=== PATIENT | female | born 1940 | race Caucasian/White ===

== ENCOUNTER 2016-11-14 11:50 | Inpatient (IN) | payer MEDICARE, OTHER ==
[2016-11-14] MEDS ORDERED: ONDANSETRON 4 MG/2 ML VIAL IVP PRN (14:57)
[2016-11-14] MEDS ORDERED: traMADol 50 MG TAB PO PRN (14:57)
[2016-11-14] MEDS ORDERED: MELATONIN 3 MG TABLET PO PRN (14:57)
[2016-11-14] MEDS ORDERED: HYDROcodone/APAP 5-325MG 1 EACH TAB PO PRN (14:57)
[2016-11-14] MEDS ORDERED: ACETAMINOPHEN TAB 325 MG TAB PO PRN (14:57)
[2016-11-14] MEDS ORDERED: NALOXONE 0.4 MG/ML 1 ML VIAL IV PRN (14:57)
--- NOTE | 2016-11-14 15:46 | XR ---
EXAMINATION TYPE: XR chest 2V DATE OF EXAM: 11/14/2016 3:42 PM COMPARISON: 04/30/2014 HISTORY: 76-year-old female shortness of breath, rule out pneumonia TECHNIQUE: Frontal and lateral views FINDINGS: Limited exam due to significant kyphotic positioning and low lung volumes. Heart is mildly enlarged. Mild elongation of the thoracic aorta. Diffuse interstitial prominence. Calcified granuloma at the ri ght base. Hazy density at the left base likely atelectasis. No pleural effusion seen on the lateral v iew. IMPRESSION: 1. Cardiomegaly. 2. Hypoventilatory changes and kyphotic positioning limiting the exam. Chronic changes without defini te acute process.
[2016-11-14 15:59] LABS: Basophils % (A) 0 %; CH 29.9; CHCM 31.2; Eosinophils # (A) 0.1 k/uL (0-0.7); Eosinophils % (A) 2 %; HDW 2.43; HGB 11.4 gm/dL (11.4-16.0); Hypochromasia Slight; Luc # (Auto) 0.19; Luc % (Auto) 3; Lymphocytes # (A) 1.2 k/uL (1.0-4.8); Lymphocytes % (A) 17 %; MCH 30.5 pg (25.0-35.0); MCHC 31.7 g/dL (31.0-37.0); MCV 96.4 fL (80.0-100.0); Mean Platelet Volume 8.3; Monocytes # (A) 0.6 k/uL (0-1.0); Monocytes % (A) 8 %; Neutrophils # (A) 5.2 k/uL (1.3-7.7); Neutrophils % (A) 70 %; RBC 3.74 m/uL (3.80-5.40); RDW 13.3 % (11.5-15.5); WBC 7.4 k/uL (3.8-10.6); WBC (Perox) 8.01
[2016-11-14 16:08] LABS: Anion Gap 6 mmol/L; Blood Urea Nitrogen 21 mg/dL (7-17); Calcium 9.4 mg/dL (8.4-10.2); Carbon Dioxide 24 mmol/L (22-30); Chloride 109 mmol/L (98-107); Glucose 84 mg/dL (74-99); Non-African American GFR(MDRD) >60 (>60 ml/min/1.73 sqM); Potassium 4.6 mmol/L (3.5-5.1); Sodium 139 mmol/L (137-145)
[2016-11-14 16:27] VITALS: BMI 21.4
[2016-11-14] MEDS: SODIUM CHLORIDE 0.9% 1,000 ML IV SCH (16:32)
--- NOTE | 2016-11-14 17:45 | HP ---
DATE OF ADMISSION: Patient is a transfer from [facility]. We are still obtaining her medical history and other information at this point of time. Patient apparently was having fevers at the facility and patient has decubitus ulcer which appears to be stage IV decubitus ulcer. Possibility of this being a source of infection. I am unable to obtain any history from the patient. Will obtain UA, urine cultures. Chest x-ray did not show any pneumonic process and apparently these were obtained at the other hospital which did not show any significant abnormality. Patient does not have any leukocytosis. Patient has a decubitus ulcer looking infected with foul-smelling discharge, which will be cultured and packed with surrounding cellulitis. I am consulting Infectious Disease and will leave the decision of evaluation for osteomyelitis to them. Patient will have wound cultures obtained. Blood cultures were obtained at the other hospital. I will also obtain another repeat set of blood cultures here. I will consult Infectious Disease. Patient is in chronically contracted state, etiology of which is unknown. As per previous dictations from Dr. Ba, it looks like patient had dementia. I am unsure of her contracted state. Patient is nonverbal. Review of systems unable to obtain. PAST MEDICAL HISTORY: Depression, hypertension. HOME MEDICATIONS: Not available yet. FAMILY HISTORY: Not available. ALLERGIES: None. PHYSICAL EXAMINATION: Vital signs are not available yet. GENERAL: The patient is nonverbal, alert, unable to assess orientation. HEENT: Pupils are round and equally reacting to light. EOMI. No scleral icterus. No conjunctival pallor. Normocephalic, atraumatic. No pharyngeal erythema. No thyromegaly. CARDIOVASCULAR: S1 and S2 present. No murmurs, rubs, or gallops. PULMONARY: Chest is clear to auscultation, no wheezing or crackles. ABDOMEN: Soft, nontender, nondistended, normoactive bowel sounds. No palpable organomegaly. MUSCULOSKELETAL: No joint swelling or deformity. EXTREMITIES: No cyanosis, clubbing, or pedal edema. NEUROLOGICAL: Limited. DERMATOLOGIC: Patient has a 5 cm x 4 cm ulcer, which is about 3 cm deep with foul-smelling discharge and surrounding cellulitis with localized temperature. Laboratory data from [facility] was already dictated. ASSESSMENT AND PLAN: 1. Possible sepsis. Possibility of etiology being deep decubitus ulcer, stage IV ulcer. Patient will need to be evaluated for osteomyelitis. Patient will need wound cultures, blood cultures and Infectious Disease consult. Patient will be started on Zosyn and vancomycin and IV normal saline at 100 mL/h. 2. From her medication it looks like patient has gastroesophageal reflux disease. 3. Depression. 4. Chronic contractures and dementia. 5. Nonverbal state. 6. For above-mentioned chronic medical problems I will go ahead and continue her home medications. I will also obtain urinalysis and urine cultures.
[2016-11-14] MEDS: FAMOTIDINE 20 MG TAB PO SCH (21:54)
[2016-11-15] MEDS: SODIUM CHLORIDE 0.9% 1,000 ML IV SCH ×2 (05:42→11:47)
[2016-11-15 07:26] LABS: Basophils % (A) 1 %; CH 30.4; CHCM 32.3; Eosinophils # (A) 0.2 k/uL (0-0.7); Eosinophils % (A) 2 %; HCT 33.7 % (34.0-46.0); HDW 2.47; HGB 10.4 gm/dL (11.4-16.0); Luc # (Auto) 0.18; Luc % (Auto) 3; Lymphocytes # (A) 1.2 k/uL (1.0-4.8); Lymphocytes % (A) 17 %; MCH 29.3 pg (25.0-35.0); MCV 94.5 fL (80.0-100.0); Mean Platelet Volume 8.4; Monocytes # (A) 0.7 k/uL (0-1.0); Monocytes % (A) 10 %; Neutrophils # (A) 4.7 k/uL (1.3-7.7); Neutrophils % (A) 68 %; RBC 3.56 m/uL (3.80-5.40); RDW 13.5 % (11.5-15.5); WBC (Perox) 7.57
[2016-11-15 07:50] LABS: Anion Gap 4 mmol/L; Blood Urea Nitrogen 18 mg/dL (7-17); Calcium 9.1 mg/dL (8.4-10.2); Carbon Dioxide 24 mmol/L (22-30); Chloride 109 mmol/L (98-107); Glucose 84 mg/dL (74-99); Non-African American GFR(MDRD) >60 (>60 ml/min/1.73 sqM); Potassium 4.2 mmol/L (3.5-5.1); Sodium 137 mmol/L (137-145)
[2016-11-15] MEDS: FAMOTIDINE 20 MG TAB PO SCH ×2 (08:26→20:01)
[2016-11-15] MEDS ORDERED: IV VANCOMYCIN PER PHARMACY 1 EACH MISC MISCELLANE PRN (10:27)
[2016-11-15] MEDS: COLLAGENASE 250 UNIT/GM OINTMENT 30 GM TUBE TOPICAL SCH (11:44)
[2016-11-15] MEDS: PIPERACILLIN-TAZOBACTAM 3.375 GM in DEXTROSE/WATER 1 50ML.BAG IVPB SCH ×2 (11:44→18:29)
[2016-11-15] MEDS: VANCOMYCIN 1,000 MG in SODIUM CHLORIDE 0.9% 250 ML IVPB SCH (13:37)
--- NOTE | 2016-11-15 15:09 | P.CONS ---
History of Present Illness - Reason for Consult Consult date: 11/15/16 - Chief Complaint Fever - History of Present Illness 76-year-old female who has profound dementia and noncommunicative and has evidence of some contracture occurring presents from an outside hospital with concerns to fever. There is evidence of an extensive pressure ulceration to her coccyx for which the infectious diseases consultation requested. For her fever workup is in process concerns to the large wound as well as other potential such as pneumonia and urinary infection. She is calm and does open eyes to stimulation but does not interact with the observer in any other way. Review of Systems ROS unobtainable: due to mental status Past Medical History Past Medical History: Coronary Artery Disease (CAD), Dementia, GERD/Reflux, Hypertension, Osteoarthritis (OA) Additional Past Medical History / Comment(s): ASHD, AD, Edema, Vitamin Deficency , Constipation, Alzheimers History of Any Multi-Drug Resistant Organisms: None Reported Past Surgical History: No Surgical Hx Reported Past Anesthesia/Blood Transfusion Reactions: Unable to Obtain Past Psychological History: Depression Additional Psychological History / Comment(s): When patient was last hospitalized at our facility in 2013. It is noted that she was able to get up and walk around her room. She would rock picker, and objects and not know what they were. Smoking Status: Unknown if ever smoked Past Alcohol Use History: None Reported Past Drug Use History: None Reported - Past Family History Father History Unknown: Yes Mother History Unknown: Yes Medications and Allergies Home Medications and Allergies Comment(s): Current Medications Acetaminophen (Tylenol Tab) 650 mg PO Q6HR PRN PRN Reason: Mild Pain or Fever > 100.5 Acetaminophen/Hydrocodone Bitart ([place] 5-325) 1 each PO Q4HR PRN PRN Reason: Moderate Pain Collagenase (Santyl) 1 applic TOPICAL DAILY [facility] Last Admin: 11/15/16 11:44 Dose: 1 applic Famotidine (Pepcid) 20 mg PO BID [facility] Last Admin: 11/15/16 08:26 Dose: 20 mg Sodium Chloride (Saline 0.9%) 1,000 mls @ 100 mls/hr IV .Q10H [facility] Last Admin: 11/15/16 11:47 Dose: 100 mls/hr Piperacillin/Tazobactam/ (Dextrose 3.375 gm/ IV Solution) 50 mls @ 12.5 mls/hr IVPB Q8HR [facility] Last Admin: 11/15/16 11:44 Dose: 12.5 mls/hr Vancomycin HCl 1,000 mg/ (Sodium Chloride) 250 mls @ 125 mls/hr IVPB Q16H [facility] Last Admin: 11/15/16 13:37 Dose: 125 mls/hr Melatonin (Melatonin) 3 mg PO HS PRN PRN Reason: Insomnia Naloxone HCl (Narcan) 0.2 mg IV Q2M PRN PRN Reason: Opioid Reversal Ondansetron HCl (Zofran) 4 mg IVP Q8HR PRN PRN Reason: Nausea And Vomiting Tramadol HCl (Ultram) 50 mg PO Q6H PRN PRN Reason: Moderate Pain Home Medications Medication Instructions Recorded Confirmed Type Aspirin 81 mg PO DAILY 04/30/14 11/14/16 History Citalopram Hydrobromide [CeleXA] 20 mg PO HS 04/30/14 11/14/16 History Docusate [Colace] 200 mg PO HS 04/30/14 11/14/16 History Acetaminophen Tab [Tylenol Tab] 325 mg PO Q4-6H PRN 11/14/16 11/14/16 History Bisacodyl 10 mg RECTAL DAILY PRN 11/14/16 11/14/16 History Magnesium Hydroxide [Milk of 2,400 mg PO HS 11/14/16 11/14/16 History Magnesia] Multivitamins, Thera [Multivitamin] 1 tab PO DAILY 11/14/16 11/14/16 History Na Phos,M-B/Na Phos,Di-Ba [Fleet 133 ml RECTAL ONCE PRN 11/14/16 11/14/16 History Adult] Nystatin 100,000Unit/gm Cream 1 applic TOPICAL BID PRN 11/14/16 11/14/16 History [Mycostatin Cream] Omeprazole [PriLOSEC] 20 mg PO BID 11/14/16 11/14/16 History SILVER sulfADIAZINE CREAM 1 applic TOPICAL BID 11/14/16 11/14/16 History [Silvadene Cream] Allergies Allergy/AdvReac Type Severity Reaction Status Date / Time No Known Allergies Allergy Verified 11/14/16 15:11 Physical Exam Vitals: Vital Signs Temp Pulse Resp BP Pulse Ox 11/15/16 07:00 98.2 F 69 20 130/63 95 11/14/16 22:23 98.8 F 68 18 116/66 96 Intake and Output 11/15/16 11/15/16 11/15/16 06:59 14:59 22:59 Other: Voiding Method Diaper Diaper # Voids 2 76 year old female supine on her right side, with exam is brief eye opening and no other interaction with the observer HEENT: Anicteric conjunctiva are pink and moist nasal mucosa grossly intact without significant lesions, there is no thrush. Oral cavity is dry Neck: The neck is supple without significant lymphadenopathy or thyromegaly. Lungs: There is symmetrical air entry. There are a few basilar crackles. No sukumar bronchial sounds are heard no dullness noted. Heart: Irregular with an audible S1 and S2 no S3 soft S4 no distinct murmur click or rub is noted PMI is nondisplaced Abdomen: Positive bowel sounds soft without palpable masses or organomegaly. The abdomen is nonrigid. Extremities: The upper and lower extremities have evidence of some minimal edema. There are no sick an open lesions. She may have had heel ulcerations and if healed since the recent past by the look but no open ulcerations are seen. Neuro: Arousable briefly but does not interact with the observer otherwise Skin there is the ulceration of her coccyx there is a full-thickness ulceration that measures approximately 3.2 x 3.2 x 3 cm. There is following her at its base. Some necrosis is noted. There some mild surrounding erythema. Results CBC & Chem 7: 11/15/16 06:56 11/15/16 06:56 Labs: Abnormal Lab Results - Last 24 Hours (Table) 11/14/16 11/14/16 11/15/16 Range/Units 15:27 15:27 06:56 RBC 3.74 L 3.56 L (3.80-5.40) m/uL Hgb 10.4 L (11.4-16.0) gm/dL Hct 33.7 L (34.0-46.0) % Chloride 109 H (98-107) mmol/L BUN 21 H (7-17) mg/dL 11/15/16 Range/Units 06:56 RBC (3.80-5.40) m/uL Hgb (11.4-16.0) gm/dL Hct (34.0-46.0) % Chloride 109 H (98-107) mmol/L BUN 18 H (7-17) mg/dL Microbiology - Last 24 Hours (Table) 11/14/16 20:00 Gram Stain - Preliminary Buttock Wound Culture - Preliminary 11/14/16 20:00 Anaerobic Culture - Preliminary Buttock Laboratory Results WBC 7.0 k/uL (3.8-10.6) 11/15/16 06:56 RBC 3.56 m/uL (3.80-5.40) L 11/15/16 06:56 Hgb 10.4 gm/dL (11.4-16.0) L 11/15/16 06:56 Hct 33.7 % (34.0-46.0) L 11/15/16 06:56 MCV 94.5 fL (80.0-100.0) 11/15/16 06:56 MCH 29.3 pg (25.0-35.0) 11/15/16 06:56 MCHC 31.0 g/dL (31.0-37.0) 11/15/16 06:56 RDW 13.5 % (11.5-15.5) 11/15/16 06:56 Plt Count 172 k/uL (150-450) 11/15/16 06:56 Neutrophils % 68 % 11/15/16 06:56 Lymphocytes % 17 % 11/15/16 06:56 Monocytes % 10 % 11/15/16 06:56 Eosinophils % 2 % 11/15/16 06:56 Basophils % 1 % 11/15/16 06:56 Neutrophils # 4.7 k/uL (1.3-7.7) 11/15/16 06:56 Lymphocytes # 1.2 k/uL (1.0-4.8) 11/15/16 06:56 Monocytes # 0.7 k/uL (0-1.0) 11/15/16 06:56 Eosinophils # 0.2 k/uL (0-0.7) 11/15/16 06:56 Basophils # 0.0 k/uL (0-0.2) 11/15/16 06:56 Hypochromasia Slight 11/14/16 15:27 Sodium 137 mmol/L (137-145) 11/15/16 06:56 Potassium 4.2 mmol/L (3.5-5.1) 11/15/16 06:56 Chloride 109 mmol/L (98-107) H 11/15/16 06:56 Carbon Dioxide 24 mmol/L (22-30) 11/15/16 06:56 Anion Gap 4 mmol/L 11/15/16 06:56 BUN 18 mg/dL (7-17) H 11/15/16 06:56 Creatinine 0.68 mg/dL (0.52-1.04) 11/15/16 06:56 Est GFR (MDRD) Af Amer >60 (>60 ml/min/1.73 sqM) 11/15/16 06:56 Est GFR (MDRD) Non-Af >60 (>60 ml/min/1.73 sqM) 11/15/16 06:56 Glucose 84 mg/dL (74-99) 11/15/16 06:56 Calcium 9.1 mg/dL (8.4-10.2) 11/15/16 06:56 Microbiology 11/14/16 20:00 Buttock Gram Stain - Preliminary 11/14/16 20:00 Buttock Wound Culture - Preliminary 11/14/16 20:00 Buttock Anaerobic Culture - Preliminary Assessment and Plan (1) Fever Narrative/Plan: 76-year-old female presents from outside hospital apparently from the extended care where she is been taking care of as of late. The presentation was no dictation to have a fever as well as a new snipping ulceration to her coccyx. With concerns to her fever and the need for surgical intervention and further care she was transferred to our facility. There is evidence of the significantly infected stage IV pressure ulceration to the coccyx. Extent of this will be further defined by having a bone scan obtained. The tissue cultures are already in process. Appetite therapy with piperacillin tazobactam and vancomycin had been started for coverage for gram-negative, anaerobic and MRSA pathogens. Local wound care will be with the collagenase dressing for now given the necrosis. She may require an extensive surgical intervention. Air mattress overlay as requested. Additional evaluation will be performed and she may need alternative forms of nutrition if she is unable to meet her nutritional needs with her altered mental status. However is not clear with the overall plan or extent of care has been defined Status: Acute (2) Pressure ulcer of coccygeal region, stage 4 Status: Acute
--- NOTE | 2016-11-15 16:15 | PN ---
Patient is admitted with sepsis secondary to possible infected decubitus ulcer. Patient is nonverbal. Patient is on Zosyn and vancomycin and wound cultures are pending. Previous wound culture is polymicrobial. Patient's wound cultures are basically now showing gram-negative bacilli and moderate gram-positive cocci and moderate amount of PMN. REVIEW OF SYSTEMS: Unable to obtain at this time. Medications were reviewed. PHYSICAL EXAMINATION: Temperature 98.2, pulse of 69, respiratory rate of 20, blood pressure 130/63, saturating at 95% on room air. GENERAL: Patient is nonverbal, alert. DERMATOLOGIC: Unchanged compared to yesterday. NEUROLOGICAL: Unable to assess except for chronic contractures. No new weakness. HEENT: Pupils are round and equally reacting to light. EOMI. No scleral icterus. No conjunctival pallor. Normocephalic, atraumatic. No pharyngeal erythema. No thyromegaly. CARDIOVASCULAR: S1 and S2 present. No murmurs, rubs, or gallops. PULMONARY: Chest is clear to auscultation, no wheezing or crackles. ABDOMEN: Soft, nontender, nondistended, normoactive bowel sounds. No palpable organomegaly. MUSCULOSKELETAL: No joint swelling or deformity. EXTREMITIES: No cyanosis, clubbing, or pedal edema. Laboratory data was reviewed. Significant ones will be discussed in assessment and plan. ASSESSMENT AND PLAN: 1. Possible sepsis, etiology being sacral decubitus ulcer. The source of sepsis being sacral decubitus ulcer. Patient is on Zosyn and vancomycin. Finalization of the cultures pending and Infectious Disease was consulted. 2. Gastroesophageal reflux disease. 3. Depression. 4. Chronic contractures and dementia, etiology is unknown. 5. Nonverbal state.
[2016-11-15 17:16] LABS: Amorphous Sediment,Urine Occasional /hpf; Appearance,Urine Turbid (Clear); Bacteria,Urine Few /hpf; Bilirubin,Urine Negative (Negative); Glucose,Urine (UA) Negative (Negative); Ketones,Urine Negative (Negative); Leukocyte Esterase,Urine Large (Negative); Mucus,Urine Rare /hpf; Nitrite,Urine Positive (Negative); PH, Urine 7.5 (5.0-8.0); Particle Count 24036; Protein,Urine Trace (Negative); RBC,Urine 9 /hpf (0-5); Specific Gravity,Urine 1.012 (1.001-1.035); Squamous Epithelial Cell,Urine 50 /hpf (0-4); UA Billing (MACRO vs. MICRO) MICRO; Urobilinogen,Urine <2.0 mg/dL (<2.0); WBC,Urine 121 /hpf (0-5)
[2016-11-16] MEDS: PIPERACILLIN-TAZOBACTAM 3.375 GM in DEXTROSE/WATER 1 50ML.BAG IVPB SCH ×3 (00:01→16:33)
[2016-11-16] MEDS: SODIUM CHLORIDE 0.9% 1,000 ML IV SCH ×3 (05:23→20:34)
[2016-11-16] MEDS: VANCOMYCIN 1,000 MG in SODIUM CHLORIDE 0.9% 250 ML IVPB SCH ×2 (05:23→22:46)
[2016-11-16] MEDS: COLLAGENASE 250 UNIT/GM OINTMENT 30 GM TUBE TOPICAL SCH (08:59)
[2016-11-16] MEDS: FAMOTIDINE 20 MG TAB PO SCH ×2 (08:59→20:34)
[2016-11-16 09:00] LABS: C Reactive Protein 119.2 mg/L (<10.0)
[2016-11-16] MEDS: MULTIVITAMINS, THERA 1 EACH TAB PO SCH (13:42)
--- NOTE | 2016-11-16 14:50 | P.PN ---
Subjective Date of service 11/16/2016 Progress note being dictated for Dr. Guo. Interval history: This a 76-year-old female admitted with sepsis, decubitus ulcer, prior wound cultures polymicrobial, current cultures gram-negative bacilli, moderate gram-positive cocci and moderate amounts of PMN, and multiple other medical issues. Maintained on vancomycin, Zosyn, and wound care as per ID. T-max 100.8. Patient nonverbal, non-interactive. Objective - Vital Signs Vital signs: Vital Signs Temp 98.9 F 11/16/16 09:03 Pulse 64 11/16/16 07:00 Resp 16 11/16/16 07:00 BP 126/59 11/16/16 07:00 Pulse Ox 95 11/16/16 07:00 Intake & Output 11/15/16 11/16/16 11/16/16 18:59 06:59 18:59 Intake Total 800 Output Total 1500 Balance -700 Intake: IV 800 Sodium Chloride 0.9% 1, 800 000 ml @ 100 mls/hr IV . Q10H [facility] Rx#:[id number] Oral 0 Output: Urine 1500 Uretheral (Lynch) 1500 Other: Voiding Method Indwelling Catheter Indwelling Catheter Indwelling Catheter # Voids 1 - Exam PHYSICAL EXAM: VITAL SIGNS: As above GENERAL: [Sitting up in bed, no acute distress, arousable, nonverbal, not interacting] HEENT: [Pupils equal conjunctiva normal.] NECK: [Supple, no JVD] RESPIRATORY EFFORT:[Normal] LUNGS: [Clear, no wheezing, no crackles] CARDIOVASCULAR[regular S1 and S2, no murmurs rubs or gallops, minimal edema] GI: [Abdomen soft, nontender, positive bowel sounds.] SKIN: Unchanged; coccyx dressing clean dry and intact NEURO: Chronic contractures Microbiology 11/15/16 17:00 Urine,Catheterized Urine Culture - Preliminary 11/14/16 16:20 Blood Blood Culture Gram Stain - Preliminary 11/14/16 16:20 Blood Blood Culture - Preliminary 11/14/16 15:27 Blood Blood Culture - Preliminary No Growth after 24 hours 11/14/16 20:00 Buttock Gram Stain - Preliminary 11/14/16 20:00 Buttock Wound Culture - Preliminary Gram Neg Bacilli 11/14/16 20:00 Buttock Anaerobic Culture - Preliminary - Labs CBC & Chem 7: 11/15/16 06:56 11/15/16 06:56 Labs: Abnormal Lab Results - Last 24 Hours (Table) 11/15/16 11/15/16 11/15/16 Range/Units 06:46 06:46 17:00 ESR 41 H (0-20) mm/hr C-Reactive Protein 119.2 H (<10.0) mg/L Prealbumin 7 L (18-36) mg/dL Urine Appearance Turbid H (Clear) Urine Protein Trace H (Negative) Urine Blood Small H (Negative) Urine Nitrate Positive H (Negative) Ur Leukocyte Esterase Large H (Negative) Urine RBC 9 H (0-5) /hpf Urine WBC 121 H (0-5) /hpf Ur Squamous Epith Cells 50 H (0-4) /hpf Amorphous Sediment Occasional H (None) /hpf Urine Bacteria Few H (None) /hpf Urine Mucus Rare H (None) /hpf Microbiology - Last 24 Hours (Table) 11/15/16 17:00 Urine Culture - Preliminary Urine,Catheterized 11/14/16 16:20 Blood Culture Gram Stain - Preliminary Blood 11/14/16 16:20 Blood Culture - Preliminary Blood 11/14/16 15:27 Blood Culture - Preliminary Blood No Growth after 24 hours 11/14/16 20:00 Gram Stain - Preliminary Buttock Wound Culture - Preliminary Gram Neg Bacilli Assessment and Plan Plan: 1. Possible sepsis, etiology of sacral, coccygeal decubitus ulcer stage IV, with gram-negative bacilli, gram-positive cocci with possible bacteremia, preliminary blood cultures with gram-positive cocci. Possible acute UTI, culture in progress 2. [Gastroesophageal reflux disease]. 3. [Depression]. 4. [Chronic contractures, dementia, etiology unknown]. 5. [Nonverbal state]. Plan: Continue on current medication regime ,monitoring and symptomatic treatment. Continue following cultures closely. Antibiotics and wound care as per infectious disease. Bone scan as per ID. The impression and plan of care has been dictated as directed. : I performed a H&P examination of this patient and discussed the same with the dictator. I agree with the dictator's note. Any additional findings/opinions/ etc. will be noted.
--- NOTE | 2016-11-16 22:33 | P.PN ---
Subjective Principal diagnosis: sepsis 76-year-old female who has profound dementia and noncommunicative and has evidence of some contracture occurring presents from an outside hospital with concerns to fever. There is evidence of an extensive pressure ulceration to her coccyx for which the infectious diseases consultation requested. For her fever workup is in process concerns to the large wound as well as other potential such as pneumonia and urinary infection. She is calm and does open eyes to stimulation but does not interact with the observer in any other way. Objective - Vital Signs Vital signs: Vital Signs Temp 97.7 F 11/16/16 15:00 Pulse 56 L 11/16/16 15:00 Resp 16 11/16/16 15:00 BP 102/55 11/16/16 15:00 Pulse Ox 96 11/16/16 15:00 Intake & Output 11/16/16 11/16/16 11/17/16 06:59 18:59 06:59 Intake Total 800 850 Output Total 1500 Balance -700 850 Weight 53.07 kg Intake: IV 800 800 Sodium Chloride 0.9% 1, 800 800 000 ml @ 100 mls/hr IV . Q10H [facility] Rx#:[id number] Intake, IV Titration 50 Amount Piperacillin-Tazobactam 3 50 .375 gm In Dextrose/Water 1 50ml.bag @ 12.5 mls/hr IVPB Q8HR [facility] Rx#: [id number] Oral 0 Output: Urine 1500 Uretheral (Lynch) 1500 Other: Voiding Method Indwelling Catheter Indwelling Catheter - Exam 76 year old female supine on her right side, with exam is brief eye opening and no other interaction with the observer HEENT: Anicteric conjunctiva are pink and moist nasal mucosa grossly intact without significant lesions, there is no thrush. Oral cavity is dry Neck: The neck is supple without significant lymphadenopathy or thyromegaly. Lungs: There is symmetrical air entry. There are a few basilar crackles. No sukumar bronchial sounds are heard no dullness noted. Heart: Irregular with an audible S1 and S2 no S3 soft S4 no distinct murmur click or rub is noted PMI is nondisplaced Abdomen: Positive bowel sounds soft without palpable masses or organomegaly. The abdomen is nonrigid. Extremities: The upper and lower extremities have evidence of some minimal edema. There are no sick an open lesions. She may have had heel ulcerations and if healed since the recent past by the look but no open ulcerations are seen. Neuro: Arousable briefly but does not interact with the observer otherwise Skin there is the ulceration of her coccyx there is a full-thickness ulceration that measures approximately 3.2 x 3.2 x 3 cm. There is following her at its base. Some necrosis is noted. There some mild surrounding erythema. - Labs CBC & Chem 7: 11/15/16 06:56 11/15/16 06:56 Labs: Abnormal Lab Results - Last 24 Hours (Table) 11/15/16 Range/Units 06:46 C-Reactive Protein 119.2 H (<10.0) mg/L Prealbumin 7 L (18-36) mg/dL Microbiology - Last 24 Hours (Table) 11/14/16 16:20 Blood Culture Gram Stain - Preliminary Blood Blood Culture - Preliminary Coagulase Negative Staph 11/15/16 17:00 Urine Culture - Preliminary Urine,Catheterized Proteus spec 11/14/16 15:27 Blood Culture - Preliminary Blood No Growth after 48 hours 11/14/16 20:00 Gram Stain - Preliminary Buttock Wound Culture - Preliminary Proteus mirabilis Group D Enterococcus 11/14/16 16:20 Blood Culture - Preliminary Blood Laboratory Results WBC 7.0 k/uL (3.8-10.6) 11/15/16 06:56 RBC 3.56 m/uL (3.80-5.40) L 11/15/16 06:56 Hgb 10.4 gm/dL (11.4-16.0) L 11/15/16 06:56 Hct 33.7 % (34.0-46.0) L 11/15/16 06:56 MCV 94.5 fL (80.0-100.0) 11/15/16 06:56 MCH 29.3 pg (25.0-35.0) 11/15/16 06:56 MCHC 31.0 g/dL (31.0-37.0) 11/15/16 06:56 RDW 13.5 % (11.5-15.5) 11/15/16 06:56 Plt Count 172 k/uL (150-450) 11/15/16 06:56 Neutrophils % 68 % 11/15/16 06:56 Lymphocytes % 17 % 11/15/16 06:56 Monocytes % 10 % 11/15/16 06:56 Eosinophils % 2 % 11/15/16 06:56 Basophils % 1 % 11/15/16 06:56 Neutrophils # 4.7 k/uL (1.3-7.7) 11/15/16 06:56 Lymphocytes # 1.2 k/uL (1.0-4.8) 11/15/16 06:56 Monocytes # 0.7 k/uL (0-1.0) 11/15/16 06:56 Eosinophils # 0.2 k/uL (0-0.7) 11/15/16 06:56 Basophils # 0.0 k/uL (0-0.2) 11/15/16 06:56 Hypochromasia Slight 11/14/16 15:27 ESR 41 mm/hr (0-20) H 11/15/16 06:46 Sodium 137 mmol/L (137-145) 11/15/16 06:56 Potassium 4.2 mmol/L (3.5-5.1) 11/15/16 06:56 Chloride 109 mmol/L (98-107) H 11/15/16 06:56 Carbon Dioxide 24 mmol/L (22-30) 11/15/16 06:56 Anion Gap 4 mmol/L 11/15/16 06:56 BUN 18 mg/dL (7-17) H 11/15/16 06:56 Creatinine 0.68 mg/dL (0.52-1.04) 11/15/16 06:56 Est GFR (MDRD) Af Amer >60 (>60 ml/min/1.73 sqM) 11/15/16 06:56 Est GFR (MDRD) Non-Af >60 (>60 ml/min/1.73 sqM) 11/15/16 06:56 Glucose 84 mg/dL (74-99) 11/15/16 06:56 Calcium 9.1 mg/dL (8.4-10.2) 11/15/16 06:56 C-Reactive Protein 119.2 mg/L (<10.0) H 11/15/16 06:46 Prealbumin 7 mg/dL (18-36) L 11/15/16 06:46 Urine Color Light Yellow 11/15/16 17:00 Urine Appearance Turbid (Clear) H 11/15/16 17:00 Urine pH 7.5 (5.0-8.0) 11/15/16 17:00 Ur Specific Mchenry 1.012 (1.001-1.035) 11/15/16 17:00 Urine Protein Trace (Negative) H 11/15/16 17:00 Urine Glucose (UA) Negative (Negative) 11/15/16 17:00 Urine Ketones Negative (Negative) 11/15/16 17:00 Urine Blood Small (Negative) H 11/15/16 17:00 Urine Nitrate Positive (Negative) H 11/15/16 17:00 Urine Bilirubin Negative (Negative) 11/15/16 17:00 Urine Urobilinogen <2.0 mg/dL (<2.0) 11/15/16 17:00 Ur Leukocyte Esterase Large (Negative) H 11/15/16 17:00 Urine RBC 9 /hpf (0-5) H 11/15/16 17:00 Urine WBC 121 /hpf (0-5) H 11/15/16 17:00 Ur Squamous Epith Cells 50 /hpf (0-4) H 11/15/16 17:00 Amorphous Sediment Occasional /hpf (None) H 11/15/16 17:00 Urine Bacteria Few /hpf (None) H 11/15/16 17:00 Urine Mucus Rare /hpf (None) H 11/15/16 17:00 Microbiology 11/14/16 16:20 Blood Blood Culture Gram Stain - Preliminary 11/14/16 16:20 Blood Blood Culture - Preliminary Coagulase Negative Staph 11/15/16 17:00 Urine,Catheterized Urine Culture - Preliminary Proteus spec 11/14/16 15:27 Blood Blood Culture - Preliminary No Growth after 48 hours 11/14/16 20:00 Buttock Gram Stain - Preliminary 11/14/16 20:00 Buttock Wound Culture - Preliminary Proteus mirabilis Group D Enterococcus 11/14/16 16:20 Blood Blood Culture - Preliminary 11/14/16 20:00 Buttock Anaerobic Culture - Preliminary Assessment and Plan (1) Fever Narrative/Plan: 76-year-old female presents from outside hospital apparently from the extended care where she is been taking care of as of late. The presentation was no dictation to have a fever as well as a new snipping ulceration to her coccyx. With concerns to her fever and the need for surgical intervention and further care she was transferred to our facility. There is evidence of the significantly infected stage IV pressure ulceration to the coccyx. Extent of this will be further defined by having a bone scan obtained. The tissue cultures are already in process. Appetite therapy with piperacillin tazobactam and vancomycin had been started for coverage for gram-negative, anaerobic and MRSA pathogens. Local wound care will be with the collagenase dressing for now given the necrosis. She may require an extensive surgical intervention. Air mattress overlay as requested. Additional evaluation will be performed and she may need alternative forms of nutrition if she is unable to meet her nutritional needs with her altered mental status. However is not clear with the overall plan or extent of care has been defined Status: Acute (2) Pressure ulcer of coccygeal region, stage 4 Status: Acute
[2016-11-17] MEDS: PIPERACILLIN-TAZOBACTAM 3.375 GM in DEXTROSE/WATER 1 50ML.BAG IVPB SCH ×3 (01:18→19:03)
[2016-11-17] MEDS: SODIUM CHLORIDE 0.9% 1,000 ML IV SCH ×3 (04:32→22:12)
[2016-11-17] MEDS: FAMOTIDINE 20 MG TAB PO SCH ×2 (07:59→22:12)
[2016-11-17] MEDS: COLLAGENASE 250 UNIT/GM OINTMENT 30 GM TUBE TOPICAL SCH (08:00)
[2016-11-17 08:53] LABS: Anion Gap 8 mmol/L; Blood Urea Nitrogen 13 mg/dL (7-17); Calcium 9.5 mg/dL (8.4-10.2); Carbon Dioxide 22 mmol/L (22-30); Chloride 107 mmol/L (98-107); Glucose 84 mg/dL (74-99); Non-African American GFR(MDRD) >60 (>60 ml/min/1.73 sqM); Sodium 137 mmol/L (137-145)
[2016-11-17] MEDS: MULTIVITAMINS, THERA 1 EACH TAB PO SCH (12:51)
--- NOTE | 2016-11-17 14:19 | NM ---
EXAMINATION TYPE: NM bone 3 phase DATE OF EXAM: 11/17/2016 1:47 PM COMPARISON: NONE HISTORY: Osteomyelitis of the coccyx Triple phase bone scintigraphy was performed following the injection of27.5 mCi Tc 99m MDP. Immediat e images and 5.5 hours post injection images acquired. FINDINGS: 3 phase bone scan imaging is performed. There is increased blood flow in the region of the lower pelvis related to the coccyx. Blood pool: Increased radiotracer accumulation is in the distal coccygeal region. Static images: Focal radiotracer accumulation within the region of the coccyx is not evident. There i s some radiotracer within the urinary bladder region which can be normal. IMPRESSION: 1. Suspicious uptake in all 3 phases of bone scan are not evident within the region of the coccyx to suggest osteomyelitis. 2. There is increased uptake on blood flow images suggesting soft tissue infection could be considere d.
[2016-11-17] MEDS: VANCOMYCIN 1,000 MG in SODIUM CHLORIDE 0.9% 250 ML IVPB SCH (15:39)
--- NOTE | 2016-11-17 17:28 | P.PN ---
Subjective Date of service 11/17/2016 Progress note being dictated for Dr. Guo. Interval history: This a 76-year-old female admitted with sepsis, decubitus ulcer, prior wound cultures polymicrobial, current wound cultures growing Proteus Mirabilis, moderate group D enterococcus, urine culture Proteus SPEC, and multiple other medical issues. Maintained on vancomycin, Zosyn, and wound care as per ID. afebrile. Requires total care for all ADLs; turning every 2 hours, feeding. Good diet intake. Call demeanor.Patient nonverbal, non- interactive. Bone scan in progress. Objective - Vital Signs Vital signs: Vital Signs Temp 98.3 F 11/17/16 06:07 Pulse 56 L 11/17/16 06:07 Resp 16 11/17/16 06:07 BP 134/64 11/17/16 06:07 Pulse Ox 97 11/17/16 06:07 Intake & Output 11/16/16 11/17/16 11/17/16 18:59 06:59 18:59 Intake Total 895 955 5000 Output Total 600 600 Balance 250 -100 1160 Weight 53.07 kg Intake: IV 800 500 900 Piperacillin-Tazobactam 3 50 50 .375 gm In Dextrose/Water 1 50ml.bag @ 12.5 mls/hr IVPB Q8HR [facility] Rx#: [id number] Sodium Chloride 0.9% 1, 800 200 600 000 ml @ 100 mls/hr IV . Q10H [facility] Rx#:[id number] Vancomycin 1,000 mg In 250 250 Sodium Chloride 0.9% 250 ml @ 125 mls/hr IVPB Q16H [facility] Rx#:[id number] Intake, IV Titration 50 Amount Piperacillin-Tazobactam 3 50 .375 gm In Dextrose/Water 1 50ml.bag @ 12.5 mls/hr IVPB Q8HR [facility] Rx#: [id number] Oral 260 Output: Urine 600 600 Uretheral (Lynch) 600 Other: Voiding Method Indwelling Catheter Indwelling Catheter Indwelling Catheter - Exam PHYSICAL EXAM: VITAL SIGNS: As above GENERAL: Laying in bed, no acute distress, arousable, nonverbal, occasionally opens eyes HEENT: conjunctiva normal.] NECK: [Supple, no JVD] RESPIRATORY EFFORT:[Normal] LUNGS: [Clear, diminished bases, no wheezing, no crackles] CARDIOVASCULAR[regular S1 and S2, no murmurs rubs or gallops, minimal edema] GI: [Abdomen soft, nontender, positive bowel sounds.] SKIN: Unchanged; coccyx dressing clean dry and intact. Please refer to chart for pictures/measurements. NEURO: Chronic contractures Microbiology 11/15/16 17:00 Urine,Catheterized Urine Culture - Preliminary 11/14/16 16:20 Blood Blood Culture Gram Stain - Preliminary 11/14/16 16:20 Blood Blood Culture - Preliminary 11/14/16 15:27 Blood Blood Culture - Preliminary No Growth after 24 hours 11/14/16 20:00 Buttock Gram Stain - Preliminary 11/14/16 20:00 Buttock Wound Culture - Preliminary Gram Neg Bacilli 11/14/16 20:00 Buttock Anaerobic Culture - Preliminary - Labs CBC & Chem 7: 11/15/16 06:56 11/17/16 08:16 Labs: Microbiology - Last 24 Hours (Table) 11/14/16 16:20 Blood Culture Gram Stain - Preliminary Blood Blood Culture - Preliminary Coagulase Negative Staph 11/15/16 17:00 Urine Culture - Preliminary Urine,Catheterized Proteus spec 11/14/16 15:27 Blood Culture - Preliminary Blood No Growth after 48 hours 11/14/16 20:00 Gram Stain - Preliminary Buttock Wound Culture - Preliminary Proteus mirabilis Group D Enterococcus Assessment and Plan Plan: 1. Possible sepsis, etiology of sacral, coccygeal decubitus ulcer stage IV, wound cultures growing Proteus Mirabilis, moderate group D enterococcus, acute UTI with Proteus SPEC. 2. [Gastroesophageal reflux disease]. 3. [Depression]. 4. [Chronic contractures, dementia, etiology unknown]. 5. [Nonverbal state]. 6. Alzheimer's dementia. 7. Functional quadriplegia secondary to chronic contractures, end-stage dementia/Alzheimer's, requires total care from nursing including turning and all ADLs. Plan: Continue on current medication regime ,monitoring and symptomatic treatment. Bone scan in progress as mentioned above. Antibiotics and wound care as per infectious disease. The impression and plan of care has been dictated as directed. : I performed a H&P examination of this patient and discussed the same with the dictator. I agree with the dictator's note. Any additional findings/opinions/ etc. will be noted.
--- NOTE | 2016-11-17 22:17 | P.PN ---
Subjective Principal diagnosis: sepsis 76-year-old female who has profound dementia and noncommunicative and has evidence of some contracture occurring presents from an outside hospital with concerns to fever. There is evidence of an extensive pressure ulceration to her coccyx for which the infectious diseases consultation requested. For her fever workup is in process concerns to the large wound as well as other potential such as pneumonia and urinary infection. She is calm and does open eyes to stimulation but does not interact with the observer in any other way. Objective - Vital Signs Vital signs: Vital Signs Temp 98.1 F 11/17/16 15:00 Pulse 66 11/17/16 15:00 Resp 16 11/17/16 15:00 BP 104/59 11/17/16 15:00 Pulse Ox 96 11/17/16 15:00 Intake & Output 11/17/16 11/17/16 11/18/16 06:59 18:59 06:59 Intake Total 500 1160 Output Total 600 Balance -100 1160 Intake: IV 500 900 Piperacillin-Tazobactam 3 50 50 .375 gm In Dextrose/Water 1 50ml.bag @ 12.5 mls/hr IVPB Q8HR [facility] Rx#: [id number] Sodium Chloride 0.9% 1, 200 600 000 ml @ 100 mls/hr IV . Q10H [facility] Rx#:[id number] Vancomycin 1,000 mg In 250 250 Sodium Chloride 0.9% 250 ml @ 125 mls/hr IVPB Q16H [facility] Rx#:[id number] Oral 260 Output: Urine 600 Uretheral (Lynch) 600 Other: Voiding Method Indwelling Catheter Indwelling Catheter - Exam 76 year old female supine on her right side, with exam is brief eye opening and no other interaction with the observer HEENT: Anicteric conjunctiva are pink and moist nasal mucosa grossly intact without significant lesions, there is no thrush. Oral cavity is dry Neck: The neck is supple without significant lymphadenopathy or thyromegaly. Lungs: There is symmetrical air entry. There are a few basilar crackles. No sukumar bronchial sounds are heard no dullness noted. Heart: Irregular with an audible S1 and S2 no S3 soft S4 no distinct murmur click or rub is noted PMI is nondisplaced Abdomen: Positive bowel sounds soft without palpable masses or organomegaly. The abdomen is nonrigid. Extremities: The upper and lower extremities have evidence of some minimal edema. There are no sick an open lesions. She may have had heel ulcerations and if healed since the recent past by the look but no open ulcerations are seen. Neuro: Arousable briefly but does not interact with the observer otherwise Skin there is the ulceration of her coccyx there is a full-thickness ulceration that measures approximately 3.2 x 3.2 x 3 cm. There is necrotic slough at its base. Some necrosis is noted. There some mild surrounding erythema. Positive odor - Labs CBC & Chem 7: 11/15/16 06:56 11/17/16 08:16 Labs: Microbiology - Last 24 Hours (Table) 11/14/16 15:27 Blood Culture - Preliminary Blood No Growth after 72 hours 11/15/16 17:00 Urine Culture - Final Urine,Catheterized Proteus mirabilis 11/14/16 16:20 Blood Culture Gram Stain - Preliminary Blood Blood Culture - Preliminary Coagulase Negative Staph Laboratory Results WBC 7.0 k/uL (3.8-10.6) 11/15/16 06:56 RBC 3.56 m/uL (3.80-5.40) L 11/15/16 06:56 Hgb 10.4 gm/dL (11.4-16.0) L 11/15/16 06:56 Hct 33.7 % (34.0-46.0) L 11/15/16 06:56 MCV 94.5 fL (80.0-100.0) 11/15/16 06:56 MCH 29.3 pg (25.0-35.0) 11/15/16 06:56 MCHC 31.0 g/dL (31.0-37.0) 11/15/16 06:56 RDW 13.5 % (11.5-15.5) 11/15/16 06:56 Plt Count 172 k/uL (150-450) 11/15/16 06:56 Neutrophils % 68 % 11/15/16 06:56 Lymphocytes % 17 % 11/15/16 06:56 Monocytes % 10 % 11/15/16 06:56 Eosinophils % 2 % 11/15/16 06:56 Basophils % 1 % 11/15/16 06:56 Neutrophils # 4.7 k/uL (1.3-7.7) 11/15/16 06:56 Lymphocytes # 1.2 k/uL (1.0-4.8) 11/15/16 06:56 Monocytes # 0.7 k/uL (0-1.0) 11/15/16 06:56 Eosinophils # 0.2 k/uL (0-0.7) 11/15/16 06:56 Basophils # 0.0 k/uL (0-0.2) 11/15/16 06:56 Hypochromasia Slight 11/14/16 15:27 ESR 41 mm/hr (0-20) H 11/15/16 06:46 Sodium 137 mmol/L (137-145) 11/17/16 08:16 Potassium 4.0 mmol/L (3.5-5.1) 11/17/16 08:16 Chloride 107 mmol/L (98-107) 11/17/16 08:16 Carbon Dioxide 22 mmol/L (22-30) 11/17/16 08:16 Anion Gap 8 mmol/L 11/17/16 08:16 BUN 13 mg/dL (7-17) 11/17/16 08:16 Creatinine 0.75 mg/dL (0.52-1.04) 11/17/16 08:16 Est GFR (MDRD) Af Amer >60 (>60 ml/min/1.73 sqM) 11/17/16 08:16 Est GFR (MDRD) Non-Af >60 (>60 ml/min/1.73 sqM) 11/17/16 08:16 Glucose 84 mg/dL (74-99) 11/17/16 08:16 Calcium 9.5 mg/dL (8.4-10.2) 11/17/16 08:16 C-Reactive Protein 119.2 mg/L (<10.0) H 11/15/16 06:46 Prealbumin 7 mg/dL (18-36) L 11/15/16 06:46 Urine Color Light Yellow 11/15/16 17:00 Urine Appearance Turbid (Clear) H 11/15/16 17:00 Urine pH 7.5 (5.0-8.0) 11/15/16 17:00 Ur Specific [place] 1.012 (1.001-1.035) 11/15/16 17:00 Urine Protein Trace (Negative) H 11/15/16 17:00 Urine Glucose (UA) Negative (Negative) 11/15/16 17:00 Urine Ketones Negative (Negative) 11/15/16 17:00 Urine Blood Small (Negative) H 11/15/16 17:00 Urine Nitrate Positive (Negative) H 11/15/16 17:00 Urine Bilirubin Negative (Negative) 11/15/16 17:00 Urine Urobilinogen <2.0 mg/dL (<2.0) 11/15/16 17:00 Ur Leukocyte Esterase Large (Negative) H 11/15/16 17:00 Urine RBC 9 /hpf (0-5) H 11/15/16 17:00 Urine WBC 121 /hpf (0-5) H 11/15/16 17:00 Ur Squamous Epith Cells 50 /hpf (0-4) H 11/15/16 17:00 Amorphous Sediment Occasional /hpf (None) H 11/15/16 17:00 Urine Bacteria Few /hpf (None) H 11/15/16 17:00 Urine Mucus Rare /hpf (None) H 11/15/16 17:00 Microbiology 11/14/16 15:27 Blood Blood Culture - Preliminary No Growth after 72 hours 11/15/16 17:00 Urine,Catheterized Urine Culture - Final Proteus mirabilis 11/14/16 16:20 Blood Blood Culture Gram Stain - Preliminary 11/14/16 16:20 Blood Blood Culture - Preliminary Coagulase Negative Staph 11/14/16 20:00 Buttock Gram Stain - Preliminary 11/14/16 20:00 Buttock Wound Culture - Preliminary Proteus mirabilis Group D Enterococcus 11/14/16 16:20 Blood Blood Culture - Preliminary 11/14/16 20:00 Buttock Anaerobic Culture - Preliminary Assessment and Plan (1) Fever Narrative/Plan: 76-year-old female presents from outside hospital apparently from the extended care where she is been taking care of as of late. The presentation was no dictation to have a fever as well as a new snipping ulceration to her coccyx. With concerns to her fever and the need for surgical intervention and further care she was transferred to our facility. There is evidence of the significantly infected stage IV pressure ulceration to the coccyx. Bone scan has been performed that shows evidence of soft tissue phase but no evidence of any bony involvement. Cultures show evidence of the group D enterococcus as well as Proteus Mirabilis both in the wound and the urine for which the piperacillin tazobactam is an excellent choice Will ask for surgical consult with Dr. Simental to see if she cannot have a surgical debridement and after which a wound VAC likely can be applied Local wound care will be with the collagenase dressing for now given the necrosis. She may require an extensive surgical intervention. Air mattress overlay as requested. Additional evaluation will be performed and she may need alternative forms of nutrition if she is unable to meet her nutritional needs with her altered mental status. However is not clear with the overall plan or extent of care has been defined Status: Acute (2) Pressure ulcer of coccygeal region, stage 4 Status: Acute
[2016-11-18] MEDS: PIPERACILLIN-TAZOBACTAM 3.375 GM in DEXTROSE/WATER 1 50ML.BAG IVPB SCH ×3 (01:30→17:15)
[2016-11-18] MEDS ORDERED: VANCOMYCIN TROUGH DUE 1 EACH MISC MISCELLANE ONE (05:00)
[2016-11-18 08:18] LABS: Anion Gap 6 mmol/L; Blood Urea Nitrogen 15 mg/dL (7-17); Calcium 9.2 mg/dL (8.4-10.2); Carbon Dioxide 23 mmol/L (22-30); Chloride 108 mmol/L (98-107); Glucose 87 mg/dL (74-99); Non-African American GFR(MDRD) >60 (>60 ml/min/1.73 sqM); Potassium 3.8 mmol/L (3.5-5.1); Sodium 137 mmol/L (137-145)
[2016-11-18] MEDS: FAMOTIDINE 20 MG TAB PO SCH ×2 (08:26→22:13)
[2016-11-18] MEDS: MULTIVITAMINS, THERA 1 EACH TAB PO SCH (08:27)
[2016-11-18] MEDS: COLLAGENASE 250 UNIT/GM OINTMENT 30 GM TUBE TOPICAL SCH (08:31)
[2016-11-18] MEDS: SODIUM CHLORIDE 0.9% 1,000 ML IV SCH ×2 (08:33→22:18)
--- NOTE | 2016-11-18 12:33 | P.GSCN ---
History of Present Illness Consult date: 11/18/16 Reason for Consult: Decubitus ulcer History of present illness: Patient admitted with sepsis. She was found have a foul-smelling sacral decubitus ulcer. She is a long-term patient at [facility]. She is nonverbal. She is contracted. Review of Systems ROS unobtainable: due to mental status Past Medical History Past Medical History: Coronary Artery Disease (CAD), Dementia, GERD/Reflux, Hypertension, Osteoarthritis (OA) Additional Past Medical History / Comment(s): ASHD, AD, Edema, Vitamin Deficency , Constipation, Alzheimers History of Any Multi-Drug Resistant Organisms: None Reported Past Surgical History: No Surgical Hx Reported Past Anesthesia/Blood Transfusion Reactions: Unable to Obtain Past Psychological History: Depression Additional Psychological History / Comment(s): When patient was last hospitalized at our facility in 2013. It is noted that she was able to get up and walk around her room. She would olive picker, and objects and not know what they were. Smoking Status: Unknown if ever smoked Past Alcohol Use History: None Reported Past Drug Use History: None Reported - Past Family History Father History Unknown: Yes Mother History Unknown: Yes Medications and Allergies Home Medications Medication Instructions Recorded Confirmed Type Aspirin 81 mg PO DAILY 04/30/14 11/14/16 History Citalopram Hydrobromide [CeleXA] 20 mg PO HS 04/30/14 11/14/16 History Docusate [Colace] 200 mg PO HS 04/30/14 11/14/16 History Acetaminophen Tab [Tylenol Tab] 325 mg PO Q4-6H PRN 11/14/16 11/14/16 History Bisacodyl 10 mg RECTAL DAILY PRN 11/14/16 11/14/16 History Magnesium Hydroxide [Milk of 2,400 mg PO HS 11/14/16 11/14/16 History Magnesia] Multivitamins, Thera [Multivitamin] 1 tab PO DAILY 11/14/16 11/14/16 History Na Phos,M-B/Na Phos,Di-Ba [Fleet 133 ml RECTAL ONCE PRN 11/14/16 11/14/16 History Adult] Nystatin 100,000Unit/gm Cream 1 applic TOPICAL BID PRN 11/14/16 11/14/16 History [Mycostatin Cream] Omeprazole [PriLOSEC] 20 mg PO BID 11/14/16 11/14/16 History SILVER sulfADIAZINE CREAM 1 applic TOPICAL BID 11/14/16 11/14/16 History [Silvadene Cream] Allergies Allergy/AdvReac Type Severity Reaction Status Date / Time No Known Allergies Allergy Verified 11/14/16 15:11 Surgical - Exam Vital Signs Temp Pulse Resp BP Pulse Ox 97.4 F L 63 16 129/60 99 11/14/16 15:00 11/14/16 15:00 11/14/16 15:00 11/14/16 15:00 11/14/16 15:00 Physical exam: General: Elderly white female with contractures HEENT: Normocephalic, sclerae nonicteric Abdomen: [Nontender, nondistended] Extremities: No edema Neuro: Lethargic Integument: Sacral decubitus ulcer noted measuring 4 x 4 centimeters in diameter , mild tenderness, foul-smelling drainage in order, necrotic tissue surrounds the inside of the ulcer. Results - Labs 11/15/16 06:56 11/18/16 07:22 Abnormal Lab Results - Last 24 Hours (Table) 11/18/16 Range/Units 07:22 Chloride 108 H (98-107) mmol/L Microbiology - Last 24 Hours (Table) 11/14/16 20:00 Gram Stain - Final Buttock Wound Culture - Final Proteus mirabilis Enterococcus faecalis 11/14/16 16:20 Blood Culture Gram Stain - Final Blood Blood Culture - Final Coagulase Negative Staph 11/14/16 15:27 Blood Culture - Preliminary Blood No Growth after 72 hours 11/15/16 17:00 Urine Culture - Final Urine,Catheterized Proteus mirabilis Diabetes panel 11/18/16 Range/Units 07:22 Sodium 137 (137-145) mmol/L Potassium 3.8 (3.5-5.1) mmol/L Chloride 108 H (98-107) mmol/L Carbon Dioxide 23 (22-30) mmol/L BUN 15 (7-17) mg/dL Creatinine 0.72 (0.52-1.04) mg/dL Glucose 87 (74-99) mg/dL Calcium 9.2 (8.4-10.2) mg/dL Calcium panel 11/18/16 Range/Units 07:22 Calcium 9.2 (8.4-10.2) mg/dL Pituitary panel 11/18/16 Range/Units 07:22 Sodium 137 (137-145) mmol/L Potassium 3.8 (3.5-5.1) mmol/L Chloride 108 H (98-107) mmol/L Carbon Dioxide 23 (22-30) mmol/L BUN 15 (7-17) mg/dL Creatinine 0.72 (0.52-1.04) mg/dL Glucose 87 (74-99) mg/dL Calcium 9.2 (8.4-10.2) mg/dL Adrenal panel 11/18/16 Range/Units 07:22 Sodium 137 (137-145) mmol/L Potassium 3.8 (3.5-5.1) mmol/L Chloride 108 H (98-107) mmol/L Carbon Dioxide 23 (22-30) mmol/L BUN 15 (7-17) mg/dL Creatinine 0.72 (0.52-1.04) mg/dL Glucose 87 (74-99) mg/dL Calcium 9.2 (8.4-10.2) mg/dL Assessment and Plan (1) Pressure ulcer of coccygeal region, stage 4 Narrative/Plan: Will proceed with debridement in the operating room. Consent will be obtained from the power of insurance defense attorney. Status: Acute
--- NOTE | 2016-11-18 17:53 | P.PN ---
Subjective Date of service 11/18/2016 Progress note being dictated for Dr. Guo. Interval history: This a 76-year-old female admitted with sepsis, decubitus ulcer, prior wound cultures polymicrobial, current wound cultures growing Proteus mirabilis , enteococcus faecalis , UTI with Proteus Mirabilis and multiple other medical issues. Maintained on vancomycin, Zosyn. Underwent Bone scan yesterday reporting suspicious uptake in all 3 phases not evident within the region of the coccyx to suggest osteomyelitis, suggestive of soft tissue infection. Evaluated by surgery, with debridement recommended. Afebrile. Objective - Vital Signs Vital signs: Vital Signs Temp 98 F 11/18/16 15:00 Pulse 58 L 11/18/16 15:00 Resp 16 11/18/16 16:00 BP 105/54 11/18/16 15:00 Pulse Ox 97 11/18/16 15:00 Intake & Output 11/17/16 11/18/16 11/18/16 18:59 06:59 18:59 Intake Total 1160 350 600 Output Total 1000 1400 Balance 1160 -650 -800 Intake: IV 900 250 500 Piperacillin-Tazobactam 3 50 50 50 .375 gm In Dextrose/Water 1 50ml.bag @ 12.5 mls/hr IVPB Q8HR [facility] Rx#: [id number] Sodium Chloride 0.9% 1, 600 200 200 000 ml @ 100 mls/hr IV . Q10H [facility] Rx#:[id number] Vancomycin 1,000 mg In 250 250 Sodium Chloride 0.9% 250 ml @ 125 mls/hr IVPB Q16H [facility] Rx#:[id number] Oral 260 100 100 Output: Urine 1000 1400 Uretheral (Lyn[facility]) 700 1400 Other: Voiding Method Indwelling Catheter Indwelling Catheter Indwelling Catheter - Exam PHYSICAL EXAM: VITAL SIGNS: As above GENERAL: Laying in bed, no acute distress, arousable, nonverbal, occasionally opens eyes HEENT: conjunctiva normal.] NECK: [Supple, no JVD] RESPIRATORY EFFORT:[Normal] LUNGS: [Clear, diminished bases, no wheezing, no crackles] CARDIOVASCULAR[regular S1 and S2, no murmurs rubs or gallops, minimal edema] GI: [Abdomen soft, nontender, positive bowel sounds.] SKIN: Unchanged; coccyx dressing clean dry and intact. Please refer to chart for pictures/measurements. NEURO: Chronic contractures Microbiology 11/14/16 20:00 Buttock Gram Stain - Final 11/14/16 20:00 Buttock Wound Culture - Final Proteus mirabilis Enterococcus faecalis 11/14/16 16:20 Blood Blood Culture Gram Stain - Final 11/14/16 16:20 Blood Blood Culture - Final Coagulase Negative Staph 11/14/16 15:27 Blood Blood Culture - Preliminary No Growth after 72 hours 11/15/16 17:00 Urine,Catheterized Urine Culture - Final Proteus mirabilis 11/14/16 16:20 Blood Blood Culture - Preliminary 11/14/16 20:00 Buttock Anaerobic Culture - Preliminary - Labs CBC & Chem 7: 11/15/16 06:56 11/18/16 07:22 Labs: Abnormal Lab Results - Last 24 Hours (Table) 11/18/16 Range/Units 07:22 Chloride 108 H (98-107) mmol/L Microbiology - Last 24 Hours (Table) 11/14/16 20:00 Gram Stain - Final Buttock Wound Culture - Final Proteus mirabilis Enterococcus faecalis 11/14/16 16:20 Blood Culture Gram Stain - Final Blood Blood Culture - Final Coagulase Negative Staph 11/14/16 15:27 Blood Culture - Preliminary Blood No Growth after 72 hours 11/15/16 17:00 Urine Culture - Final Urine,Catheterized Proteus mirabilis Assessment and Plan Plan: 1. Sepsis, etiology of sacral, coccygeal decubitus ulcer stage IV, wound cultures growing Proteus Mirabilis, enterococcus Mirabilis, acute UTI with Proteus Mirabilis. 2. [Gastroesophageal reflux disease]. 3. [Depression]. 4. [Chronic contractures, dementia, etiology unknown]. 5. [Nonverbal state]. 6. Alzheimer's dementia. 7. Functional quadriplegia secondary to chronic contractures, end-stage dementia/Alzheimer's, requires total care from nursing including turning and all ADLs. Plan: Continue on current medication regime ,monitoring and symptomatic treatment. Debridement pending Antibiotics as per ID. Prognosis guarded, given multiple complex medical issues. The impression and plan of care has been dictated as directed. : I performed a H&P examination of this patient and discussed the same with the dictator. I agree with the dictator's note. Any additional findings/opinions/ etc. will be noted.
[2016-11-18] MEDS ORDERED: HYDROmorphone 1 MG/ML 1 ML SYRINGE IVP PRN (19:44)
[2016-11-18] MEDS ORDERED: LIDOCAINE 1% 20 ML VIAL (10MG/ML) FOR IV START INTRADERMA PRN (19:44)
[2016-11-18] MEDS ORDERED: MIDAZOLAM 2 MG/2 ML VIAL IV PRN (19:44)
[2016-11-18] MEDS: LACTATED RINGERS 1,000 ML IV SCH (20:33)
--- NOTE | 2016-11-18 21:51 | P.PN ---
Subjective Principal diagnosis: sepsis 76-year-old female who has profound dementia and noncommunicative and has evidence of some contracture occurring presents from an outside hospital with concerns to fever. There is evidence of an extensive pressure ulceration to her coccyx for which the infectious diseases consultation requested. For her fever workup is in process concerns to the large wound as well as other potential such as pneumonia and urinary infection. She is calm and does open eyes to stimulation but does not interact with the observer in any other way. She's had about a by surgery and is plans for surgical debridement of her extensive ulceration. As noted the bone scan was negative for osteomyelitis but there certainly is deep tissue including muscular involvement. He was a stage IV pressure ulceration. Once debrided and slough and necrotic material improved will be able to utilize a negative pressure therapy system. Objective - Vital Signs Vital signs: Vital Signs Temp 98 F 11/18/16 15:00 Pulse 58 L 11/18/16 15:00 Resp 16 11/18/16 16:00 BP 105/54 11/18/16 15:00 Pulse Ox 97 11/18/16 15:00 Intake & Output 11/18/16 11/18/16 11/19/16 06:59 18:59 06:59 Intake Total 350 600 Output Total 1000 1400 Balance -650 -800 Intake: IV 250 500 Piperacillin-Tazobactam 3 50 50 .375 gm In Dextrose/Water 1 50ml.bag @ 12.5 mls/hr IVPB Q8HR [facility] Rx#: [id number] Sodium Chloride 0.9% 1, 200 200 000 ml @ 100 mls/hr IV . Q10H [facility] Rx#:[id number] Vancomycin 1,000 mg In 250 Sodium Chloride 0.9% 250 ml @ 125 mls/hr IVPB Q16H [facility] Rx#:[id number] Oral 100 100 Output: Urine 1000 1400 Uretheral (Lynch) 700 1400 Other: Voiding Method Indwelling Catheter Indwelling Catheter Indwelling Catheter - Exam 76 year old female supine on her right side, with exam is brief eye opening and no other interaction with the observer HEENT: Anicteric conjunctiva are pink and moist nasal mucosa grossly intact without significant lesions, there is no thrush. Oral cavity is dry Neck: The neck is supple without significant lymphadenopathy or thyromegaly. Lungs: There is symmetrical air entry. There are a few basilar crackles. No sukumar bronchial sounds are heard no dullness noted. Heart: Irregular with an audible S1 and S2 no S3 soft S4 no distinct murmur click or rub is noted PMI is nondisplaced Abdomen: Positive bowel sounds soft without palpable masses or organomegaly. The abdomen is nonrigid. Extremities: The upper and lower extremities have evidence of some minimal edema. There are no sick an open lesions. She may have had heel ulcerations and if healed since the recent past by the look but no open ulcerations are seen. Neuro: Arousable briefly but does not interact with the observer otherwise Skin there is the ulceration of her coccyx there is a full-thickness ulceration that measures approximately 3.2 x 3.2 x 3 cm. There is necrotic slough at its base. Some necrosis is noted. There some mild surrounding erythema. Positive odor - Labs CBC & Chem 7: 11/15/16 06:56 11/18/16 07:22 Labs: Abnormal Lab Results - Last 24 Hours (Table) 11/18/16 Range/Units 07:22 Chloride 108 H (98-107) mmol/L Microbiology - Last 24 Hours (Table) 11/14/16 20:00 Anaerobic Culture - Final Buttock 11/14/16 15:27 Blood Culture - Preliminary Blood No Growth after 96 hours 11/14/16 20:00 Gram Stain - Final Buttock Wound Culture - Final Proteus mirabilis Enterococcus faecalis 11/14/16 16:20 Blood Culture Gram Stain - Final Blood Blood Culture - Final Coagulase Negative Staph 11/15/16 17:00 Urine Culture - Final Urine,Catheterized Proteus mirabilis Laboratory Results WBC 7.0 k/uL (3.8-10.6) 11/15/16 06:56 RBC 3.56 m/uL (3.80-5.40) L 11/15/16 06:56 Hgb 10.4 gm/dL (11.4-16.0) L 11/15/16 06:56 Hct 33.7 % (34.0-46.0) L 11/15/16 06:56 MCV 94.5 fL (80.0-100.0) 11/15/16 06:56 MCH 29.3 pg (25.0-35.0) 11/15/16 06:56 MCHC 31.0 g/dL (31.0-37.0) 11/15/16 06:56 RDW 13.5 % (11.5-15.5) 11/15/16 06:56 Plt Count 172 k/uL (150-450) 11/15/16 06:56 Neutrophils % 68 % 11/15/16 06:56 Lymphocytes % 17 % 11/15/16 06:56 Monocytes % 10 % 11/15/16 06:56 Eosinophils % 2 % 11/15/16 06:56 Basophils % 1 % 11/15/16 06:56 Neutrophils # 4.7 k/uL (1.3-7.7) 11/15/16 06:56 Lymphocytes # 1.2 k/uL (1.0-4.8) 11/15/16 06:56 Monocytes # 0.7 k/uL (0-1.0) 11/15/16 06:56 Eosinophils # 0.2 k/uL (0-0.7) 11/15/16 06:56 Basophils # 0.0 k/uL (0-0.2) 11/15/16 06:56 Hypochromasia Slight 11/14/16 15:27 ESR 41 mm/hr (0-20) H 11/15/16 06:46 Sodium 137 mmol/L (137-145) 11/18/16 07:22 Potassium 3.8 mmol/L (3.5-5.1) 11/18/16 07:22 Chloride 108 mmol/L (98-107) H 11/18/16 07:22 Carbon Dioxide 23 mmol/L (22-30) 11/18/16 07:22 Anion Gap 6 mmol/L 11/18/16 07:22 BUN 15 mg/dL (7-17) 11/18/16 07:22 Creatinine 0.72 mg/dL (0.52-1.04) 11/18/16 07:22 Est GFR (MDRD) Af Amer >60 (>60 ml/min/1.73 sqM) 11/18/16 07:22 Est GFR (MDRD) Non-Af >60 (>60 ml/min/1.73 sqM) 11/18/16 07:22 Glucose 87 mg/dL (74-99) 11/18/16 07:22 Calcium 9.2 mg/dL (8.4-10.2) 11/18/16 07:22 C-Reactive Protein 119.2 mg/L (<10.0) H 11/15/16 06:46 Prealbumin 7 mg/dL (18-36) L 11/15/16 06:46 Urine Color Light Yellow 11/15/16 17:00 Urine Appearance Turbid (Clear) H 11/15/16 17:00 Urine pH 7.5 (5.0-8.0) 11/15/16 17:00 Ur Specific [place] 1.012 (1.001-1.035) 11/15/16 17:00 Urine Protein Trace (Negative) H 11/15/16 17:00 Urine Glucose (UA) Negative (Negative) 11/15/16 17:00 Urine Ketones Negative (Negative) 11/15/16 17:00 Urine Blood Small (Negative) H 11/15/16 17:00 Urine Nitrate Positive (Negative) H 11/15/16 17:00 Urine Bilirubin Negative (Negative) 11/15/16 17:00 Urine Urobilinogen <2.0 mg/dL (<2.0) 11/15/16 17:00 Ur Leukocyte Esterase Large (Negative) H 11/15/16 17:00 Urine RBC 9 /hpf (0-5) H 11/15/16 17:00 Urine WBC 121 /hpf (0-5) H 11/15/16 17:00 Ur Squamous Epith Cells 50 /hpf (0-4) H 11/15/16 17:00 Amorphous Sediment Occasional /hpf (None) H 11/15/16 17:00 Urine Bacteria Few /hpf (None) H 11/15/16 17:00 Urine Mucus Rare /hpf (None) H 11/15/16 17:00 Microbiology 11/14/16 20:00 Buttock Anaerobic Culture - Final 11/14/16 15:27 Blood Blood Culture - Preliminary No Growth after 96 hours 11/14/16 20:00 Buttock Gram Stain - Final 11/14/16 20:00 Buttock Wound Culture - Final Proteus mirabilis Enterococcus faecalis 11/14/16 16:20 Blood Blood Culture Gram Stain - Final 11/14/16 16:20 Blood Blood Culture - Final Coagulase Negative Staph 11/15/16 17:00 Urine,Catheterized Urine Culture - Final Proteus mirabilis 11/14/16 16:20 Blood Blood Culture - Preliminary Assessment and Plan (1) Fever Narrative/Plan: 76-year-old female presents from outside hospital apparently from the extended care where she is been taking care of as of late. The presentation was no dictation to have a fever as well as a new snipping ulceration to her coccyx. With concerns to her fever and the need for surgical intervention and further care she was transferred to our facility. There is evidence of the significantly infected stage IV pressure ulceration to the coccyx. Bone scan has been performed that shows evidence of soft tissue phase but no evidence of any bony involvement. Cultures show evidence of the group D enterococcus as well as Proteus Mirabilis both in the wound and the urine for which the piperacillin tazobactam is an excellent choice surgical consult with Dr. De La O has occurred and he is planning a surgical debridement and after which a wound VAC likely can be applied Local wound care will be with the collagenase dressing for now given the necrosis. Air mattress overlay as requested. Additional evaluation will be performed and she may need alternative forms of nutrition if she is unable to meet her nutritional needs with her altered mental status. However is not clear with the overall plan or extent of care has been defined Status: Acute (2) Pressure ulcer of coccygeal region, stage 4 Status: Acute
[2016-11-19] MEDS: PIPERACILLIN-TAZOBACTAM 3.375 GM in DEXTROSE/WATER 1 50ML.BAG IVPB SCH ×4 (00:36→23:34)
[2016-11-19] MEDS: SODIUM CHLORIDE 0.9% 1,000 ML IV SCH ×3 (05:17→20:44)
[2016-11-19] MEDS: COLLAGENASE 250 UNIT/GM OINTMENT 30 GM TUBE TOPICAL SCH (07:59)
[2016-11-19] MEDS: FAMOTIDINE 20 MG TAB PO SCH ×2 (07:59→20:44)
[2016-11-19 08:47] LABS: Anion Gap 6 mmol/L; Blood Urea Nitrogen 12 mg/dL (7-17); Calcium 9.3 mg/dL (8.4-10.2); Carbon Dioxide 24 mmol/L (22-30); Chloride 108 mmol/L (98-107); Glucose 79 mg/dL (74-99); Non-African American GFR(MDRD) >60 (>60 ml/min/1.73 sqM); Sodium 138 mmol/L (137-145)
[2016-11-19 09:53] LABS: Basophils % (A) 0 %; CH 30.2; CHCM 32.5; Eosinophils # (A) 0.2 k/uL (0-0.7); Eosinophils % (A) 3 %; HCT 35.9 % (34.0-46.0); HDW 2.58; HGB 11.7 gm/dL (11.4-16.0); Luc # (Auto) 0.16; Luc % (Auto) 3; Lymphocytes # (A) 1.3 k/uL (1.0-4.8); Lymphocytes % (A) 21 %; MCH 30.6 pg (25.0-35.0); MCHC 32.7 g/dL (31.0-37.0); MCV 93.3 fL (80.0-100.0); Monocytes # (A) 0.6 k/uL (0-1.0); Monocytes % (A) 9 %; Neutrophils % (A) 65 %; RBC 3.84 m/uL (3.80-5.40); RDW 13.4 % (11.5-15.5); WBC 6.1 k/uL (3.8-10.6); WBC (Perox) 6.06
[2016-11-19] MEDS: MULTIVITAMINS, THERA 1 EACH TAB PO SCH (13:14)
[2016-11-19] MEDS ORDERED: IV FLUID CONTINUATION 1,000 ML IV ONE (14:32)
--- NOTE | 2016-11-19 15:14 | P.PN ---
Subjective Date of service 11/19/2016 Progress note being dictated for Dr. Guo. Interval history: This a 76-year-old female admitted with sepsis, decubitus ulcer, prior and current wound cultures polymicrobial, UTI with Proteus Mirabilis ,and multiple other medical issues. Maintained on vancomycin, Zosyn. Scheduled for debridement today. Resting comfortably, afebrile. Bradycardic. Objective - Vital Signs Vital signs: Vital Signs Temp 97.4 F L 11/19/16 07:56 Pulse 48 L 11/19/16 07:56 Resp 16 11/19/16 07:56 BP 135/64 11/19/16 07:56 Pulse Ox 97 11/19/16 07:56 Intake & Output 11/18/16 11/19/16 11/19/16 18:59 06:59 18:59 Intake Total 600 500 Output Total 1400 1800 Balance -800 -1300 Intake: IV 500 400 Piperacillin-Tazobactam 3 50 100 .375 gm In Dextrose/Water 1 50ml.bag @ 12.5 mls/hr IVPB Q8HR [facility] Rx#: [id number] Sodium Chloride 0.9% 1, 200 300 000 ml @ 100 mls/hr IV . Q10H [facility] Rx#:[id number] Vancomycin 1,000 mg In 250 Sodium Chloride 0.9% 250 ml @ 125 mls/hr IVPB Q16H [facility] Rx#:[id number] Oral 100 100 Output: Urine 1400 1800 Uretheral ([facility]) 1400 Other: Voiding Method Indwelling Catheter Indwelling Catheter - Exam PHYSICAL EXAM: VITAL SIGNS: As above GENERAL: Laying in bed, no acute distress, arousable, nonverbal, HEENT: conjunctiva normal.] NECK: [Supple, no JVD] RESPIRATORY EFFORT:[Normal] LUNGS: [Clear, diminished bases, no wheezing, no crackles] CARDIOVASCULAR[regular S1 and S2, no murmurs rubs or gallops, minimal edema] GI: [Abdomen soft, nontender, positive bowel sounds.] SKIN: Unchanged; coccyx dressing clean dry and intact. Please refer to chart for pictures/measurements. NEURO: Chronic contractures Microbiology 11/14/16 20:00 Buttock Gram Stain - Final 11/14/16 20:00 Buttock Wound Culture - Final Proteus mirabilis Enterococcus faecalis 11/14/16 16:20 Blood Blood Culture Gram Stain - Final 11/14/16 16:20 Blood Blood Culture - Final Coagulase Negative Staph 11/14/16 15:27 Blood Blood Culture - Preliminary No Growth after 72 hours 11/15/16 17:00 Urine,Catheterized Urine Culture - Final Proteus mirabilis 11/14/16 16:20 Blood Blood Culture - Preliminary 11/14/16 20:00 Buttock Anaerobic Culture - Preliminary - Labs CBC & Chem 7: 11/19/16 07:34 11/19/16 07:34 Labs: Abnormal Lab Results - Last 24 Hours (Table) 11/19/16 Range/Units 07:34 Chloride 108 H (98-107) mmol/L Microbiology - Last 24 Hours (Table) 11/14/16 20:00 Anaerobic Culture - Final Buttock 11/14/16 15:27 Blood Culture - Preliminary Blood No Growth after 96 hours Assessment and Plan Plan: 1. Sepsis, etiology of sacral, coccygeal decubitus ulcer stage IV, wound cultures growing Proteus Mirabilis, enterococcus Mirabilis, acute UTI with Proteus Mirabilis, status post bone scan reporting no evidence of bone involvement, debridement pending. 2. [Gastroesophageal reflux disease]. 3. [Depression]. 4. [Chronic contractures, dementia, etiology unknown]. 5. [Nonverbal state]. 6. Alzheimer's dementia. 7. Functional quadriplegia secondary to chronic contractures, end-stage dementia/Alzheimer's, requires total care from nursing including turning and all ADLs. Plan: Continue on current medication regime ,monitoring and symptomatic treatment. Debridement pending, anticipate wound VAC. Antibiotics as per ID. Prognosis guarded, given multiple complex medical issues. Further recommendations to follow. The impression and plan of care has been dictated as directed. : I performed a H&P examination of this patient and discussed the same with the dictator. I agree with the dictator's note. Any additional findings/opinions/ etc. will be noted.
[2016-11-19] MEDS ORDERED: LIDOCAINE 1% INJ 10MG/ML (20 ML MDV) ONE (15:33)
[2016-11-19] MEDS ORDERED: fentaNYL (PF) 50 MCG/ML 2 ML AMP ONE (15:33)
[2016-11-19] MEDS ORDERED: PROPOFOL 10 MG/ML 20 ML VIAL IV ONE (15:33)
--- NOTE | 2016-11-19 16:00 | P.PCN ---
Date of Procedure: 11/19/16 Procedure(s) Performed: PREOPERATIVE DIAGNOSIS: Decubitus ulcer POSTOPERATIVE DIAGNOSIS: Same PROCEDURE: Debridement decubitus ulcer SURGEON: Jairon EBL: 25 mL ANESTHESIA: Sedation COMPLICATIONS: None OPERATIVE PROCEDURE: Patient was placed in the left decubitus position. The sacral region was prepped with Betadine. The sacral decubitus ulcer measured 5 x 5 cm with a depth of 4 cm. The necrotic tissue was debrided down to and including the level of the muscular layers. No definite evidence of osteomyelitis was present. Cultures were taken of the deep tissues. The debridement took place sharply in an excisional fashion using the scalpel. Small areas of bleeding were controlled using ultra cautery. The wound was packed with a saline moistened gauze. A sterile dressing was applied. DISPOSITION: Stable to recovery room
--- NOTE | 2016-11-19 23:08 | P.PN ---
Subjective Principal diagnosis: sepsis 76-year-old female who has profound dementia and noncommunicative and has evidence of some contracture occurring presents from an outside hospital with concerns to fever. There is evidence of an extensive pressure ulceration to her coccyx for which the infectious diseases consultation requested. For her fever workup is in process concerns to the large wound as well as other potential such as pneumonia and urinary infection. She is calm and does open eyes to stimulation but does not interact with the observer in any other way. She's had about a by surgery and is plans for surgical debridement of her extensive ulceration. As noted the bone scan was negative for osteomyelitis but there certainly is deep tissue including muscular involvement. Has a stage IV pressure ulceration. The ulcers been debrided today. It is of size that a negative pressure therapy system will be an ideal choice. Objective - Vital Signs Vital signs: Vital Signs Temp 97.1 F L 11/19/16 21:08 Pulse 68 11/19/16 21:08 Resp 16 11/19/16 21:08 BP 91/47 11/19/16 21:08 Pulse Ox 93 L 11/19/16 21:08 Intake & Output 11/19/16 11/19/16 11/20/16 06:59 18:59 06:59 Intake Total 500 375 Output Total 1800 675 Balance -1300 -300 Weight 53.07 kg Intake: IV 400 375 Piperacillin-Tazobactam 3 100 50 .375 gm In Dextrose/Water 1 50ml.bag @ 12.5 mls/hr IVPB Q8HR [facility] Rx#: [id number] Sodium Chloride 0.9% 1, 300 000 ml @ 100 mls/hr IV . Q10H [facility] Rx#:[id number] Oral 100 Output: Urine 1800 650 Uretheral ([place]) 500 Estimated Blood Loss 25 Other: Voiding Method Indwelling Catheter Indwelling Catheter - Exam 76 year old female supine on her right side, with exam is brief eye opening and no other interaction with the observer HEENT: Anicteric conjunctiva are pink and moist nasal mucosa grossly intact without significant lesions, there is no thrush. Oral cavity is dry Neck: The neck is supple without significant lymphadenopathy or thyromegaly. Lungs: There is symmetrical air entry. There are a few basilar crackles. No sukumar bronchial sounds are heard no dullness noted. Heart: Irregular with an audible S1 and S2 no S3 soft S4 no distinct murmur click or rub is noted PMI is nondisplaced Abdomen: Positive bowel sounds soft without palpable masses or organomegaly. The abdomen is nonrigid. Extremities: The upper and lower extremities have evidence of some minimal edema. There are no sick an open lesions. She may have had heel ulcerations and if healed since the recent past by the look but no open ulcerations are seen. Neuro: Arousable briefly but does not interact with the observer otherwise Skin there is the ulceration of her coccyx there is a full-thickness ulceration it is directly postoperative . - Labs CBC & Chem 7: 11/19/16 07:34 11/19/16 07:34 Labs: Abnormal Lab Results - Last 24 Hours (Table) 11/19/16 Range/Units 07:34 Chloride 108 H (98-107) mmol/L Microbiology - Last 24 Hours (Table) 11/14/16 15:27 Blood Culture - Preliminary Blood No Growth after 120 hours 11/14/16 20:00 Anaerobic Culture - Final Buttock Laboratory Results WBC 6.1 k/uL (3.8-10.6) 11/19/16 07:34 RBC 3.84 m/uL (3.80-5.40) 11/19/16 07:34 Hgb 11.7 gm/dL (11.4-16.0) 11/19/16 07:34 Hct 35.9 % (34.0-46.0) 11/19/16 07:34 MCV 93.3 fL (80.0-100.0) 11/19/16 07:34 MCH 30.6 pg (25.0-35.0) 11/19/16 07:34 MCHC 32.7 g/dL (31.0-37.0) 11/19/16 07:34 RDW 13.4 % (11.5-15.5) 11/19/16 07:34 Plt Count 205 k/uL (150-450) 11/19/16 07:34 Neutrophils % 65 % 11/19/16 07:34 Lymphocytes % 21 % 11/19/16 07:34 Monocytes % 9 % 11/19/16 07:34 Eosinophils % 3 % 11/19/16 07:34 Basophils % 0 % 11/19/16 07:34 Neutrophils # 4.0 k/uL (1.3-7.7) 11/19/16 07:34 Lymphocytes # 1.3 k/uL (1.0-4.8) 11/19/16 07:34 Monocytes # 0.6 k/uL (0-1.0) 11/19/16 07:34 Eosinophils # 0.2 k/uL (0-0.7) 11/19/16 07:34 Basophils # 0.0 k/uL (0-0.2) 11/19/16 07:34 Hypochromasia Slight 11/14/16 15:27 ESR 41 mm/hr (0-20) H 11/15/16 06:46 Sodium 138 mmol/L (137-145) 11/19/16 07:34 Potassium 4.0 mmol/L (3.5-5.1) 11/19/16 07:34 Chloride 108 mmol/L (98-107) H 11/19/16 07:34 Carbon Dioxide 24 mmol/L (22-30) 11/19/16 07:34 Anion Gap 6 mmol/L 11/19/16 07:34 BUN 12 mg/dL (7-17) 11/19/16 07:34 Creatinine 0.66 mg/dL (0.52-1.04) 11/19/16 07:34 Est GFR (MDRD) Af Amer >60 (>60 ml/min/1.73 sqM) 11/19/16 07:34 Est GFR (MDRD) Non-Af >60 (>60 ml/min/1.73 sqM) 11/19/16 07:34 Glucose 79 mg/dL (74-99) 11/19/16 07:34 Calcium 9.3 mg/dL (8.4-10.2) 11/19/16 07:34 C-Reactive Protein 119.2 mg/L (<10.0) H 11/15/16 06:46 Prealbumin 7 mg/dL (18-36) L 11/15/16 06:46 Urine Color Light Yellow 11/15/16 17:00 Urine Appearance Turbid (Clear) H 11/15/16 17:00 Urine pH 7.5 (5.0-8.0) 11/15/16 17:00 Ur Specific [place] 1.012 (1.001-1.035) 11/15/16 17:00 Urine Protein Trace (Negative) H 11/15/16 17:00 Urine Glucose (UA) Negative (Negative) 11/15/16 17:00 Urine Ketones Negative (Negative) 11/15/16 17:00 Urine Blood Small (Negative) H 11/15/16 17:00 Urine Nitrate Positive (Negative) H 11/15/16 17:00 Urine Bilirubin Negative (Negative) 11/15/16 17:00 Urine Urobilinogen <2.0 mg/dL (<2.0) 11/15/16 17:00 Ur Leukocyte Esterase Large (Negative) H 11/15/16 17:00 Urine RBC 9 /hpf (0-5) H 11/15/16 17:00 Urine WBC 121 /hpf (0-5) H 11/15/16 17:00 Ur Squamous Epith Cells 50 /hpf (0-4) H 11/15/16 17:00 Amorphous Sediment Occasional /hpf (None) H 11/15/16 17:00 Urine Bacteria Few /hpf (None) H 11/15/16 17:00 Urine Mucus Rare /hpf (None) H 11/15/16 17:00 Microbiology 11/14/16 15:27 Blood Blood Culture - Preliminary No Growth after 120 hours 11/14/16 20:00 Buttock Anaerobic Culture - Final 11/14/16 20:00 Buttock Gram Stain - Final 11/14/16 20:00 Buttock Wound Culture - Final Proteus mirabilis Enterococcus faecalis 11/14/16 16:20 Blood Blood Culture Gram Stain - Final 11/14/16 16:20 Blood Blood Culture - Final Coagulase Negative Staph 11/15/16 17:00 Urine,Catheterized Urine Culture - Final Proteus mirabilis 11/14/16 16:20 Blood Blood Culture - Preliminary Assessment and Plan (1) Fever Narrative/Plan: 76-year-old female presents from outside hospital apparently from the extended care where she is been taking care of as of late. The presentation was no dictation to have a fever as well as a new snipping ulceration to her coccyx. With concerns to her fever and the need for surgical intervention and further care she was transferred to our facility. There is evidence of the significantly infected stage IV pressure ulceration to the coccyx. Bone scan has been performed that shows evidence of soft tissue phase but no evidence of any bony involvement. Cultures show evidence of the group D enterococcus as well as Proteus Mirabilis both in the wound and the urine for which the piperacillin tazobactam is an excellent choice The blood cultures are coagulase-negative staph. Will not need further treatment. Now that her blood cultures are negative a PICC line may be placed. surgical consult with Dr. De La O has occurred and surgical debridement is occurred today. Local wound care will be with the collagenase dressing for now. If there is good hemostasis and negative pressure therapy system can be applied tomorrow. Air mattress overlay in use Additional evaluation will be performed and she may need alternative forms of nutrition if she is unable to meet her nutritional needs with her altered mental status. However is not clear with the overall plan or extent of care has been defined Status: Acute (2) Pressure ulcer of coccygeal region, stage 4 Status: Acute
[2016-11-19] MEDS: LACTATED RINGERS 1,000 ML IV SCH (23:14)
[2016-11-20 07:53] LABS: Anion Gap 8 mmol/L; Blood Urea Nitrogen 14 mg/dL (7-17); Calcium 9.3 mg/dL (8.4-10.2); Carbon Dioxide 24 mmol/L (22-30); Chloride 106 mmol/L (98-107); Glucose 86 mg/dL (74-99); Non-African American GFR(MDRD) >60 (>60 ml/min/1.73 sqM); Potassium 4.2 mmol/L (3.5-5.1); Sodium 138 mmol/L (137-145)
[2016-11-20] MEDS: PIPERACILLIN-TAZOBACTAM 3.375 GM in DEXTROSE/WATER 1 50ML.BAG IVPB SCH ×2 (09:41→17:41)
[2016-11-20] MEDS: COLLAGENASE 250 UNIT/GM OINTMENT 30 GM TUBE TOPICAL SCH (09:42)
[2016-11-20] MEDS: FAMOTIDINE 20 MG TAB PO SCH (09:42)
--- NOTE | 2016-11-20 10:47 | PN ---
This 76-year-old woman who was admitted with sepsis secondary to sacral decubitus ulcer is being closely monitored. The patient underwent debridement of the decubitus ulcer by Dr. De La O. Today seen and evaluated the patient along with the nurse practitioner. Please refer to nurse practitioner notes and impression documented for further information. Prognosis guarded. Further recommendations to follow.
[2016-11-20] MEDS: SODIUM CHLORIDE 0.9% 1,000 ML IV SCH ×2 (13:09→22:05)
[2016-11-20] MEDS: MULTIVITAMINS, THERA 1 EACH TAB PO SCH (13:10)
[2016-11-20] MEDS ORDERED: LIDOCAINE 2% INJ 20 MG/ML SQ ONE (14:20)
--- NOTE | 2016-11-20 16:55 | IR ---
EXAMINATION TYPE: IR cvc insert >=5 years DATE OF EXAM: 11/20/2016 4:30 PM COMPARISON: NONE CLINICAL HISTORY: Infection Needs long-term intravenous access for antibiotics. PROCEDURE: After informed consent, the skin overlying the left basilic vein was localized with ultrasound and no micah to be compressible and patent. An ultrasound image was obtained and submitted on the patient's c linn. The overlying skin was prepped and draped and Lidocaine was used for local anesthesia. A skin juana was made with a scalpel. Access was gained to the vein under ultrasound guidance with a 21 gau ge needle and a 0.018 inch wire was advanced. Access site was dilated with Peel-Away sheath and cath eter tailored to the appropriate length and advanced such that the distal tip is at the cavoatrial ju nction. Spot image was obtained verifying placement. Catheter was fixed to the skin with suture and a sterile dressing was placed following hemostasis. Catheter was aspirated and flushed with saline. Patient was discharged in stable condition without complication. Maximal barrier technique is utili zed. Ultrasound image is documented on the chart. Ultrasound used with sterile technique. Fluoro time and fluoroscopic images submitted to document procedure: 38 intraoperative C-arm images, 0.5 minutes fluoroscopy time IMPRESSION: STATUS POST ULTRASOUND AND FLUOROSCOPIC GUIDED PICC LINE PLACEMENT, READY FOR USE. THIS PROCEDURE WAS PERFORMED BY THE UNDERSIGNED.
--- NOTE | 2016-11-20 21:46 | PN ---
DATE OF SERVICE: 11/20/2016 This 76-year-old woman who was admitted with sepsis and coccygeal decubitus is being closely monitored. The patient continues to be barely responsive. Patient IV broad-spectrum antibiotics. Wound care is also being continued. On exam, the patient is stuporous. Pulse 68, blood pressure 90/47, respirations 16, temperature 97.4, pulse ox 93% on room air. HEENT: Conjunctivae normal. NECK: No jugular venous distention. CARDIOVASCULAR: S1 and S2 muffled. RESPIRATORY: Breath sounds diminished in the bases. A few scattered rhonchi and crackles. Abdomen is soft, nontender. LEGS: No edema. NERVOUS SYSTEM: No focal deficit. BACK: Status post decubitus ulcer. Labs are CBC, BMP within normal limits. UA noted. ASSESSMENT: 1. Acute sepsis and acute cocci in decubitus ulcer stage IV, wound culture showing Proteus mirabilis, Enterococcus mirabilis as well as bone scan reporting no evidence of bone involvement and debridement pending. 2. Gastroesophageal reflux disease. 3. Depression. 4. Chronic contractures. 5. Dementia. 6. 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 7. Urinary tract infection. RECOMMENDATIONS AND DISCUSSION: In this 76-year-old woman who presented with multiple complex medical issues, will continue current medications, continue with symptomatic treatment. Otherwise at this time, continue with IV antibiotics. Follow closely with cultures as noted. Guarded prognosis. Further recommendations to follow. [facility]
[2016-11-21] MEDS: PIPERACILLIN-TAZOBACTAM 3.375 GM in DEXTROSE/WATER 1 50ML.BAG IVPB SCH ×3 (00:01→17:33)
--- NOTE | 2016-11-21 00:03 | P.PN ---
Subjective Principal diagnosis: sepsis 76-year-old female who has profound dementia and noncommunicative and has evidence of some contracture occurring presents from an outside hospital with concerns to fever. There is evidence of an extensive pressure ulceration to her coccyx for which the infectious diseases consultation requested. For her fever workup is in process concerns to the large wound as well as other potential such as pneumonia and urinary infection. She is calm and does open eyes to stimulation but does not interact with the observer in any other way. She's had about a by surgery and is plans for surgical debridement of her extensive ulceration. As noted the bone scan was negative for osteomyelitis but there certainly is deep tissue including muscular involvement. Has a stage IV pressure ulceration. The ulcers been debrided. It is of size that a negative pressure therapy system will be an ideal choice. Objective - Vital Signs Vital signs: Vital Signs Temp 98 F 11/20/16 07:00 Pulse 52 L 11/20/16 16:00 Resp 16 11/20/16 16:00 BP 104/47 11/20/16 07:00 Pulse Ox 96 11/20/16 07:00 Intake & Output 11/20/16 11/20/16 11/21/16 06:59 18:59 06:59 Intake Total 800 200 Output Total 775 Balance 800 -575 Intake: IV 700 Piperacillin-Tazobactam 3 100 .375 gm In Dextrose/Water 1 50ml.bag @ 12.5 mls/hr IVPB Q8HR [facility] Rx#: [id number] Sodium Chloride 0.9% 1, 600 000 ml @ 100 mls/hr IV . Q10H [facility] Rx#:[id number] Oral 100 200 Output: Urine 775 Uretheral (Lynch) 775 Other: Voiding Method Indwelling Catheter Indwelling Catheter - Exam 76 year old female supine on her right side, with exam is brief eye opening and no other interaction with the observer HEENT: Anicteric conjunctiva are pink and moist nasal mucosa grossly intact without significant lesions, there is no thrush. Oral cavity is dry Neck: The neck is supple without significant lymphadenopathy or thyromegaly. Lungs: There is symmetrical air entry. There are a few basilar crackles. No sukumar bronchial sounds are heard no dullness noted. Heart: Irregular with an audible S1 and S2 no S3 soft S4 no distinct murmur click or rub is noted PMI is nondisplaced Abdomen: Positive bowel sounds soft without palpable masses or organomegaly. The abdomen is nonrigid. Extremities: The upper and lower extremities have evidence of some minimal edema. There are no sick an open lesions. She may have had heel ulcerations and if healed since the recent past by the look but no open ulcerations are seen. Neuro: Arousable briefly but does not interact with the observer otherwise Skin there is the ulceration of her coccyx there is a full-thickness ulceration it is postoperative . - Labs CBC & Chem 7: 11/19/16 07:34 11/20/16 07:13 Labs: Microbiology - Last 24 Hours (Table) 11/14/16 15:27 Blood Culture - Final Blood No Growth after 144 hours Laboratory Results WBC 6.1 k/uL (3.8-10.6) 11/19/16 07:34 RBC 3.84 m/uL (3.80-5.40) 11/19/16 07:34 Hgb 11.7 gm/dL (11.4-16.0) 11/19/16 07:34 Hct 35.9 % (34.0-46.0) 11/19/16 07:34 MCV 93.3 fL (80.0-100.0) 11/19/16 07:34 MCH 30.6 pg (25.0-35.0) 11/19/16 07:34 MCHC 32.7 g/dL (31.0-37.0) 11/19/16 07:34 RDW 13.4 % (11.5-15.5) 11/19/16 07:34 Plt Count 205 k/uL (150-450) 11/19/16 07:34 Neutrophils % 65 % 11/19/16 07:34 Lymphocytes % 21 % 11/19/16 07:34 Monocytes % 9 % 11/19/16 07:34 Eosinophils % 3 % 11/19/16 07:34 Basophils % 0 % 11/19/16 07:34 Neutrophils # 4.0 k/uL (1.3-7.7) 11/19/16 07:34 Lymphocytes # 1.3 k/uL (1.0-4.8) 11/19/16 07:34 Monocytes # 0.6 k/uL (0-1.0) 11/19/16 07:34 Eosinophils # 0.2 k/uL (0-0.7) 11/19/16 07:34 Basophils # 0.0 k/uL (0-0.2) 11/19/16 07:34 Hypochromasia Slight 11/14/16 15:27 ESR 41 mm/hr (0-20) H 11/15/16 06:46 Sodium 138 mmol/L (137-145) 11/20/16 07:13 Potassium 4.2 mmol/L (3.5-5.1) 11/20/16 07:13 Chloride 106 mmol/L (98-107) 11/20/16 07:13 Carbon Dioxide 24 mmol/L (22-30) 11/20/16 07:13 Anion Gap 8 mmol/L 11/20/16 07:13 BUN 14 mg/dL (7-17) 11/20/16 07:13 Creatinine 0.78 mg/dL (0.52-1.04) 11/20/16 07:13 Est GFR (MDRD) Af Amer >60 (>60 ml/min/1.73 sqM) 11/20/16 07:13 Est GFR (MDRD) Non-Af >60 (>60 ml/min/1.73 sqM) 11/20/16 07:13 Glucose 86 mg/dL (74-99) 11/20/16 07:13 Calcium 9.3 mg/dL (8.4-10.2) 11/20/16 07:13 C-Reactive Protein 119.2 mg/L (<10.0) H 11/15/16 06:46 Prealbumin 7 mg/dL (18-36) L 11/15/16 06:46 Urine Color Light Yellow 11/15/16 17:00 Urine Appearance Turbid (Clear) H 11/15/16 17:00 Urine pH 7.5 (5.0-8.0) 11/15/16 17:00 Ur Specific [place] 1.012 (1.001-1.035) 11/15/16 17:00 Urine Protein Trace (Negative) H 11/15/16 17:00 Urine Glucose (UA) Negative (Negative) 11/15/16 17:00 Urine Ketones Negative (Negative) 11/15/16 17:00 Urine Blood Small (Negative) H 11/15/16 17:00 Urine Nitrate Positive (Negative) H 11/15/16 17:00 Urine Bilirubin Negative (Negative) 11/15/16 17:00 Urine Urobilinogen <2.0 mg/dL (<2.0) 11/15/16 17:00 Ur Leukocyte Esterase Large (Negative) H 11/15/16 17:00 Urine RBC 9 /hpf (0-5) H 11/15/16 17:00 Urine WBC 121 /hpf (0-5) H 11/15/16 17:00 Ur Squamous Epith Cells 50 /hpf (0-4) H 11/15/16 17:00 Amorphous Sediment Occasional /hpf (None) H 11/15/16 17:00 Urine Bacteria Few /hpf (None) H 11/15/16 17:00 Urine Mucus Rare /hpf (None) H 11/15/16 17:00 Microbiology 11/14/16 15:27 Blood Blood Culture - Final No Growth after 144 hours 11/14/16 20:00 Buttock Anaerobic Culture - Final 11/14/16 20:00 Buttock Gram Stain - Final 11/14/16 20:00 Buttock Wound Culture - Final Proteus mirabilis Enterococcus faecalis 11/14/16 16:20 Blood Blood Culture Gram Stain - Final 11/14/16 16:20 Blood Blood Culture - Final Coagulase Negative Staph 11/15/16 17:00 Urine,Catheterized Urine Culture - Final Proteus mirabilis 11/14/16 16:20 Blood Blood Culture - Preliminary Assessment and Plan (1) Fever Narrative/Plan: 76-year-old female presents from outside hospital apparently from the extended care where she is been taking care of as of late. The presentation was no dictation to have a fever as well as a new snipping ulceration to her coccyx. With concerns to her fever and the need for surgical intervention and further care she was transferred to our facility. There is evidence of the significantly infected stage IV pressure ulceration to the coccyx. Bone scan has been performed that shows evidence of soft tissue phase but no evidence of any bony involvement. Cultures show evidence of the group D enterococcus as well as Proteus Mirabilis both in the wound and the urine for which the piperacillin tazobactam is an excellent choice The blood cultures are coagulase-negative staph. Will not need further treatment. Now that her blood cultures are negative a PICC line may be placed. surgical consult with Dr. De La O has occurred and surgical debridement is occurred today. Local wound care will be with the collagenase dressing for now. If there is good hemostasis and negative pressure therapy system can be applied Air mattress overlay in use Additional evaluation will be performed and she may need alternative forms of nutrition if she is unable to meet her nutritional needs with her altered mental status. However is not clear with the overall plan or extent of care has been defined Status: Acute (2) Pressure ulcer of coccygeal region, stage 4 Status: Acute
[2016-11-21 08:25] LABS: Anion Gap 6 mmol/L; Blood Urea Nitrogen 12 mg/dL (7-17); Calcium 9.2 mg/dL (8.4-10.2); Carbon Dioxide 24 mmol/L (22-30); Chloride 108 mmol/L (98-107); Glucose 82 mg/dL (74-99); Non-African American GFR(MDRD) >60 (>60 ml/min/1.73 sqM); Potassium 3.8 mmol/L (3.5-5.1); Sodium 138 mmol/L (137-145)
[2016-11-21] MEDS: FAMOTIDINE 20 MG TAB PO SCH (09:14)
[2016-11-21] MEDS: COLLAGENASE 250 UNIT/GM OINTMENT 30 GM TUBE TOPICAL SCH (09:14)
[2016-11-21] MEDS: SODIUM CHLORIDE 0.9% 1,000 ML IV SCH ×2 (11:34→20:32)
[2016-11-21] MEDS: MULTIVITAMINS, THERA 1 EACH TAB PO SCH (11:35)
[2016-11-21 11:54] LABS: Glucose,Whole Blood 135 mg/dL (75-99)
[2016-11-21 23:19] VITALS: RESP 16
[2016-11-22] MEDS: PIPERACILLIN-TAZOBACTAM 3.375 GM in DEXTROSE/WATER 1 50ML.BAG IVPB SCH ×3 (00:20→16:19)
[2016-11-22] MEDS: SODIUM CHLORIDE 0.9% 1,000 ML IV SCH ×2 (05:37→16:18)
[2016-11-22] MEDS: FAMOTIDINE 20 MG TAB PO SCH (08:01)
[2016-11-22] MEDS: MULTIVITAMINS, THERA 1 EACH TAB PO SCH (08:02)
[2016-11-22] MEDS: COLLAGENASE 250 UNIT/GM OINTMENT 30 GM TUBE TOPICAL SCH (08:02)
--- NOTE | 2016-11-22 08:23 | PN ---
DATE OF SERVICE: 11/21/2016 This 76-year-old woman was admitted with acute sepsis, decubitus ulcer being closely monitored. Patient had polymicrobial daya at this time. The patient has got contractures and limited mobility. Also Infectious Disease is following the patient closely. The patient underwent surgical debridement. No chest pain, no palpitations. No fever. On exam, patient is barely responsive. Pulse is 51, blood pressure 105/56, respirations 18, temperature 96.8, pulse ox 90% on room air. HEENT: Conjunctivae normal. NECK: No jugular venous distention. CARDIOVASCULAR: S1 and S2, muffled. RESPIRATORY: Breath sounds diminished at the bases. A few scattered rhonchi. ABDOMEN: Soft, nontender. LEGS: No edema, no swelling. NERVOUS SYSTEM: Unchanged. LABS: Glucose 135. ASSESSMENT: 1. Acute sepsis with decubitus ulcer stage IV with wound culture showing Proteus mirabilis and Enterococcus faecalis, which is vancomycin sensitive and blood culture showing coagulase-negative Staph. 2. Gastroesophageal reflux disease. 3. Depression. 4. Change in mental status, metabolic encephalopathy, acute on chronic. 5. Chronic contractures. 6. History of dementia. 7. 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 8. Significant dementia. 9. Urinary tract infection. 10. NO CODE, NO CPR, NO VENT RECOMMENDATIONS AND DISCUSSION: In this 76-year-old woman who presented with multiple complex medical issues, we will monitor the patient closely. Continue the current medications and symptomatic treatment. Continue with antibiotics. Prognosis guarded. Continue with feeding attempts. Further recommendations to follow.
[2016-11-23] MEDS: SODIUM CHLORIDE 0.9% 1,000 ML IV SCH ×2 (00:13→16:57)
[2016-11-23] MEDS: PIPERACILLIN-TAZOBACTAM 3.375 GM in DEXTROSE/WATER 1 50ML.BAG IVPB SCH ×3 (00:13→15:31)
[2016-11-23] MEDS: COLLAGENASE 250 UNIT/GM OINTMENT 30 GM TUBE TOPICAL SCH (08:18)
[2016-11-23] MEDS: MULTIVITAMINS, THERA 1 EACH TAB PO SCH (08:20)
[2016-11-23] MEDS: FAMOTIDINE 20 MG TAB PO SCH (08:20)
--- NOTE | 2016-11-23 09:25 | PN ---
DATE OF SERVICE: 11/22/2016 This 76 -year-old woman was admitted with acute sepsis and Stage IV, the patient is being closely monitored. No chest pain. No palpitations. No fever. On exam, the patient is stuporous. Pulse 62. Blood pressure 126/59, respiratory rate 16. Temperature 97.6. Pulse ox 93% on room air. HEENT: Conjunctivae normal. NECK: No jugular venous distention. CARDIOVASCULAR: S1, S2 muffled. RESPIRATORY: Breath sounds diminished at the bases. Scattered rhonchi and crackles. ABDOMEN: Soft. Nontender. No mass palpable. LEGS: No edema. No swelling. CENTRAL NERVOUS SYSTEM: No focal deficits. Labs at this time shows: CBC within normal limits. Glucose 134. ASSESSMENT: 1. Acute sepsis and acute stage IV with wound culture showing Proteus mirabilis, Enterococcus faecalis which is Vancomycin sensitive and blood cultures showing coag negative Staph. 2. Gastroesophageal reflux disease. 3. Depression. 4. History of change in mental status, metabolic encephalopathy, acute on chronic. 5. Chronic contractures. 6. History of dementia. 7. Functional partial secondary to chronic contractures. 8. Significant dementia. 9. Urinary tract infection. 10. NO CODE, NO CPR, NO VENT. RECOMMENDATIONS AND DISCUSSION: Recommend to continue current medications. Continue with monitoring, symptomatic treatment. Otherwise, at this time, I would recommend PICC line antibiotics. The patient is NO CODE. Prognosis guarded. Talked with family preservation caseworker regarding further recommendations. Further recommendations to follow. [facility]
--- NOTE | 2016-11-23 11:07 | DS ---
DATE OF ADMISSION: 11/14/2016 DATE OF DISCHARGE: FINAL DIAGNOSIS(ES): 1. Acute sepsis with acute stage IV decubitus ulcer with wound culture showing Proteus mirabilis, Enterococcus faecalis Vanco sensitive and blood culture showing coag negative Staph. 2. Gastroesophageal reflux disease. 3. Depression. 4. Change in mental status, metabolic encephalopathy with acute on chronic. 5. Chronic contractures. 6. History of dementia. 7. Functional partial paralysis from the chronic contractures. 8. Significant dementia. 9. Urinary tract infection. 10. NO CODE, NO CPR, NO VENT. DISCHARGE DISPOSITION: The patient will be discharged in stable condition with guarded prognosis. Total time taken 35 minutes. HISTORY OF PRESENT ILLNESS: This 76 -year-old woman with past medical history of multiple medical problems being followed by Dr. Valencia in [facility] was admitted with acute sepsis and decubitus ulcer. The patient was treated with IV antibiotics. The patient improved significantly. infectious disease consulted. Patient is not currently NO CODE, and continue to monitor continue to monitor. On exam, vitals are stable. Mentation unchanged. CARDIOVASCULAR SYSTEM: S1, S2 muffled. RESPIRATORY: a few rhonchi. Central nervous system: Unchanged. Otherwise, the cultures as mentioned earlier. CBC within normal limits. Patient will be discharged in a stable condition with guarded prognosis with the following advice and medications: 1. Diet is cardiac. 2. Activity limited until follow-up. 4. Aspiration precautions. 5. Follow up with Dr. Lowery as recommended. 6. Wound care. 7. Tylenol 325 mg q.4 p.r.n. 8. Ecotrin 81 mg daily. 9. Bisocodyl 10 mg daily. 10. Celexa 20 mg at bedtime. 11. Santyl one application daily. 12. Wound care per infectious disease. 13. Colace 200 mg at bedtime. Hold if there is diarrhea. 14. Milk of magnesia p.r.n. 2.4 mg p.r.n. q.h.s. for diarrhea. 15. Melatonin 3 milligrams q.h.s. p.r.n. for insomnia. 16. Multivitamin 1 p.o. daily. 17. Fleets enema p.r.n. 18. Nystatin p.r.n. for rash. 19. Prilosec 20 mg b.i.d. 20. Silver sulfadiazine cream local application. 21. Ultra 50 mg q.6 p.r.n. for pain. Once again the patient will be discharged in stable condition with guarded prognosis. CBC in the ECF in 2 to 3 days. [facility]
[2016-11-23 15:56] VITALS: BP 112/57; PULSE 65
[2016-11-23 18:34] VITALS: TEMP 99
--- NOTE | 2016-11-23 19:11 | P.PN ---
Subjective Principal diagnosis: sepsis 76-year-old female who has profound dementia and noncommunicative and has evidence of some contracture occurring presents from an outside hospital with concerns to fever. There is evidence of an extensive pressure ulceration to her coccyx for which the infectious diseases consultation requested. For her fever workup is in process concerns to the large wound as well as other potential such as pneumonia and urinary infection. She is calm and does open eyes to stimulation but does not interact with the observer in any other way. She's had about a by surgery and is plans for surgical debridement of her extensive ulceration. As noted the bone scan was negative for osteomyelitis but there certainly is deep tissue including muscular involvement. Has a stage IV pressure ulceration. The ulcers been debrided. It is of size that a negative pressure therapy system will be an ideal choice. Objective - Vital Signs Vital signs: Vital Signs Temp 99 F 11/23/16 15:00 Pulse 65 11/23/16 15:00 Resp 16 11/23/16 15:00 BP 112/57 11/23/16 15:00 Pulse Ox 97 11/23/16 15:00 Intake & Output 11/23/16 11/23/16 11/24/16 06:59 18:59 06:59 Intake Total 1090 Output Total 400 1000 Balance 690 -1000 Weight 53.07 kg Intake: IV 850 Piperacillin-Tazobactam 3 50 .375 gm In Dextrose/Water 1 50ml.bag @ 12.5 mls/hr IVPB Q8HR [facility] Rx#: [id number] Sodium Chloride 0.9% 1, 800 000 ml @ 100 mls/hr IV . Q10H [facility] Rx#:[id number] Oral 240 Output: Urine 400 1000 Uretheral (Lynch) 400 Other: Voiding Method Indwelling Catheter Indwelling Catheter # Bowel Movements 1 - Exam 76 year old female supine on her right side, with exam is brief eye opening and no other interaction with the observer HEENT: Anicteric conjunctiva are pink and moist nasal mucosa grossly intact without significant lesions, there is no thrush. Oral cavity is dry Neck: The neck is supple without significant lymphadenopathy or thyromegaly. Lungs: There is symmetrical air entry. There are a few basilar crackles. No sukumar bronchial sounds are heard no dullness noted. Heart: Irregular with an audible S1 and S2 no S3 soft S4 no distinct murmur click or rub is noted PMI is nondisplaced Abdomen: Positive bowel sounds soft without palpable masses or organomegaly. The abdomen is nonrigid. Extremities: The upper and lower extremities have evidence of some minimal edema. There are no other significant open lesions. She may have had heel ulcerations and if healed since the recent past by the look but no open ulcerations are seen. Neuro: Arousable briefly but does not interact with the observer otherwise Skin there is the ulceration of her coccyx that is a full-thickness ulceration , much improved since debridement - Labs CBC & Chem 7: 11/19/16 07:34 11/21/16 07:24 Labs: Laboratory Results WBC 6.1 k/uL (3.8-10.6) 11/19/16 07:34 RBC 3.84 m/uL (3.80-5.40) 11/19/16 07:34 Hgb 11.7 gm/dL (11.4-16.0) 11/19/16 07:34 Hct 35.9 % (34.0-46.0) 11/19/16 07:34 MCV 93.3 fL (80.0-100.0) 11/19/16 07:34 MCH 30.6 pg (25.0-35.0) 11/19/16 07:34 MCHC 32.7 g/dL (31.0-37.0) 11/19/16 07:34 RDW 13.4 % (11.5-15.5) 11/19/16 07:34 Plt Count 205 k/uL (150-450) 11/19/16 07:34 Neutrophils % 65 % 11/19/16 07:34 Lymphocytes % 21 % 11/19/16 07:34 Monocytes % 9 % 11/19/16 07:34 Eosinophils % 3 % 11/19/16 07:34 Basophils % 0 % 11/19/16 07:34 Neutrophils # 4.0 k/uL (1.3-7.7) 11/19/16 07:34 Lymphocytes # 1.3 k/uL (1.0-4.8) 11/19/16 07:34 Monocytes # 0.6 k/uL (0-1.0) 11/19/16 07:34 Eosinophils # 0.2 k/uL (0-0.7) 11/19/16 07:34 Basophils # 0.0 k/uL (0-0.2) 11/19/16 07:34 Hypochromasia Slight 11/14/16 15:27 ESR 41 mm/hr (0-20) H 11/15/16 06:46 Sodium 138 mmol/L (137-145) 11/21/16 07:24 Potassium 3.8 mmol/L (3.5-5.1) 11/21/16 07:24 Chloride 108 mmol/L (98-107) H 11/21/16 07:24 Carbon Dioxide 24 mmol/L (22-30) 11/21/16 07:24 Anion Gap 6 mmol/L 11/21/16 07:24 BUN 12 mg/dL (7-17) 11/21/16 07:24 Creatinine 0.74 mg/dL (0.52-1.04) 11/21/16 07:24 Est GFR (MDRD) Af Amer >60 (>60 ml/min/1.73 sqM) 11/21/16 07:24 Est GFR (MDRD) Non-Af >60 (>60 ml/min/1.73 sqM) 11/21/16 07:24 Glucose 82 mg/dL (74-99) 11/21/16 07:24 POC Glucose (mg/dL) 135 mg/dL (75-99) H 11/21/16 11:46 POC Glu Scientific Illustrator ID Fanny Keys 11/21/16 11:46 Calcium 9.2 mg/dL (8.4-10.2) 11/21/16 07:24 C-Reactive Protein 119.2 mg/L (<10.0) H 11/15/16 06:46 Prealbumin 7 mg/dL (18-36) L 11/15/16 06:46 Urine Color Light Yellow 11/15/16 17:00 Urine Appearance Turbid (Clear) H 11/15/16 17:00 Urine pH 7.5 (5.0-8.0) 11/15/16 17:00 Ur Specific [place] 1.012 (1.001-1.035) 11/15/16 17:00 Urine Protein Trace (Negative) H 11/15/16 17:00 Urine Glucose (UA) Negative (Negative) 11/15/16 17:00 Urine Ketones Negative (Negative) 11/15/16 17:00 Urine Blood Small (Negative) H 11/15/16 17:00 Urine Nitrate Positive (Negative) H 11/15/16 17:00 Urine Bilirubin Negative (Negative) 11/15/16 17:00 Urine Urobilinogen <2.0 mg/dL (<2.0) 11/15/16 17:00 Ur Leukocyte Esterase Large (Negative) H 11/15/16 17:00 Urine RBC 9 /hpf (0-5) H 11/15/16 17:00 Urine WBC 121 /hpf (0-5) H 11/15/16 17:00 Ur Squamous Epith Cells 50 /hpf (0-4) H 11/15/16 17:00 Amorphous Sediment Occasional /hpf (None) H 11/15/16 17:00 Urine Bacteria Few /hpf (None) H 11/15/16 17:00 Urine Mucus Rare /hpf (None) H 11/15/16 17:00 Microbiology 11/14/16 15:27 Blood Blood Culture - Final No Growth after 144 hours 11/14/16 20:00 Buttock Anaerobic Culture - Final 11/14/16 20:00 Buttock Gram Stain - Final 11/14/16 20:00 Buttock Wound Culture - Final Proteus mirabilis Enterococcus faecalis 11/14/16 16:20 Blood Blood Culture Gram Stain - Final 11/14/16 16:20 Blood Blood Culture - Final Coagulase Negative Staph 11/15/16 17:00 Urine,Catheterized Urine Culture - Final Proteus mirabilis 11/14/16 16:20 Blood Blood Culture - Preliminary Assessment and Plan (1) Fever Narrative/Plan: 76-year-old female presents from outside hospital apparently from the extended care where she is been taking care of as of late. The presentation was no dictation to have a fever as well as a new snipping ulceration to her coccyx. With concerns to her fever and the need for surgical intervention and further care she was transferred to our facility. There is evidence of the significantly infected stage IV pressure ulceration to the coccyx. Bone scan has been performed that shows evidence of soft tissue phase but no evidence of any bony involvement. Cultures show evidence of the group D enterococcus as well as Proteus Mirabilis both in the wound and the urine for which the piperacillin tazobactam is an excellent choice The blood cultures are coagulase-negative staph. Will not need further treatment. Now that her blood cultures are negative a PICC line may be placed. surgical consult with Dr. De La O has occurred and surgical debridement is occurred today. Local wound care will be with the collagenase dressing for now. Wound care can be altered to negative pressure therapy certainly while she is cared for at the extended care facility. Follow-up in the wound healing center weekly Air mattress overlay in use Status: Acute (2) Pressure ulcer of coccygeal region, stage 4 Status: Acute
== END 2016-11-23 18:50 | DRG 853 ==
LOC: 5MS5E 14:51
PROVIDERS: ADMIT Internal Medicine; ATTEND Internal Medicine
DX: A41.9 Sepsis, unspecified organism (principal); G93.41 Metabolic encephalopathy; L89.154 Pressure ulcer of sacral region, stage 4; L03.312 Cellulitis of back [any part except buttock and flank]; N39.0 Urinary tract infection, site not specified; G30.9 Alzheimer's disease, unspecified; G83.9 Paralytic syndrome, unspecified; F02.80 Dementia in other diseases classified elsewhere, unspecified severity, without behavioral disturbance, psychotic disturbance, mood disturbance, and anxiety; B96.4 Proteus (mirabilis) (morganii) as the cause of diseases classified elsewhere; F32.9 Major depressive disorder, single episode, unspecified; G47.00 Insomnia, unspecified; I10 Essential (primary) hypertension; I25.10 Atherosclerotic heart disease of native coronary artery without angina pectoris; K21.9 Gastro-esophageal reflux disease without esophagitis; M19.90 Unspecified osteoarthritis, unspecified site; Z79.82 Long term (current) use of aspirin; Z79.899 Other long term (current) drug therapy
CPT/HCPCS: 36569; 71020; 76937; 77001; 78315; 80048; 81001; 84134; 85025; 85652; 86140; 87040; 87070; 87075; 87077; 87086; 87186; 87205